=== PATIENT | male | born 1975 | race Caucasian/White ===

== ENCOUNTER → 2019-05-17 11:01 | Outpatient (CLI) | payer BC, SELFPAY ==
[2019-05-19 01:10] LABS: COVID19 Sendout Not Detected (Not Detected)
== END ==
PROVIDERS: Visit Provider Physician Assistant
DX: R06.02 Shortness of breath (principal)
CPT/HCPCS: 87635

== ENCOUNTER → 2019-09-28 06:50 | Outpatient (CLI) | payer BC, SELFPAY ==
[2019-09-28 08:39] LABS: Add Manual Diff / Slide Review NO; Basophils Absolute Auto 0 /uL (0-100); Basophils Percent Auto 0.8 % (0-2); Eosinophils Absolute Auto 200 /uL (0-450); Eosinophils Percent Auto 2.9 % (2-4); Hemoglobin 14.2 g/dL (13.5-17.5); Lymphocytes Absolute Auto 1600 /uL (1100-4500); Lymphocytes Percent Auto 27.3 % (25-40); Mean Corpuscular HGB Conc 33.7 % (30-36); Mean Corpuscular Hemoglobin 29.3 PG (26-34); Mean Corpuscular Volume 86.9 fL (80-100); Monocytes Absolute Auto 500 /uL (0-900); Neutrophils Absolute Auto 3600 /uL (1500-7000); Platelet Count 184 X10^3/uL (150-400); Red Blood Cell Count 4.83 X10^6/uL (4.5-5.9); Red Cell Distribution Width 13.7 % (11.6-14.8); White Blood Cell Count 5.9 X10^3/uL (4.5-11.0)
[2019-09-28 08:40] LABS: Alanine Aminotransferase 40 IU/L (<50); Albumin 4.2 g/dL (3.5-5.0); Albumin Globulin Ratio 1.3 (1.0-2.8); Alkaline Phosphatase 69 U/L (38-126); Aspartate Aminotransferase 38 IU/L (17-59); BUN Creatinine Ratio 15.5 (6-22); Bilirubin Total 0.7 mg/dL (0.2-1.3); Blood Urea Nitrogen 15 mg/dL (9-20); Calcium 9.1 mg/dL (8.4-10.2); Carbon Dioxide 28 mmol/L (22-32); Chloride 105 mmol/L (98-107); Estimated Glomerular Filt Rate > 60.0 mL/min (>60); Globulin 3.2 g/dL (1.7-4.1); Glucose 100 mg/dL (70-100); HEMOLYSIS < 15 (0-50); Potassium 4.4 mmol/L (3.4-5.1); Sodium 139 mmol/L (137-145); Total Protein 7.4 g/dL (6.3-8.2)
[2019-09-30 06:37] LABS: SARS CoV19 IgA Negative (Negative)
[2019-09-30 14:08] LABS: SARS-CoV19- IgM Negative (Negative)
== END ==
PROVIDERS: PCP Internal Medicine; Referring Provider Internal Medicine; Visit Provider Internal Medicine
DX: I83.813 Varicose veins of bilateral lower extremities with pain (principal); Z20.828 Contact with and (suspected) exposure to other viral communicable diseases; E66.9 Obesity, unspecified
CPT/HCPCS: 36415; 80053; 85025; 86769

== ENCOUNTER → 2020-01-30 08:08 | Outpatient (CLI) | payer BC, SELFPAY ==
[2020-01-30 09:45] LABS: Alanine Aminotransferase 39 IU/L (<50); Albumin 4.1 g/dL (3.5-5.0); Albumin Globulin Ratio 1.4 (1.0-2.8); Alkaline Phosphatase 72 U/L (38-126); Aspartate Aminotransferase 34 IU/L (17-59); Blood Urea Nitrogen 17 mg/dL (9-20); Calcium 9.2 mg/dL (8.4-10.2); Carbon Dioxide 28 mmol/L (22-32); Chloride 105 mmol/L (98-107); Cholesterol 119 mg/dL (140-199); Estimated Glomerular Filt Rate > 60.0 mL/min (>60); Glucose 101 mg/dL (70-100); HDL Cholesterol 45 mg/dL (40-60); HEMOLYSIS < 15 (0-50); LDL Cholesterol Calculated 60 mg/dL (<100); Potassium 4.5 mmol/L (3.4-5.1); Sodium 139 mmol/L (137-145); Total Protein 7.1 g/dL (6.3-8.2); Triglycerides 72 mg/dL (35-150)
== END ==
PROVIDERS: PCP Internal Medicine; Referring Provider Internal Medicine; Visit Provider Nurse Practitioner Adult Health
DX: Z00.00 Encounter for general adult medical examination without abnormal findings (principal)
CPT/HCPCS: 36415; 80053; 80061

== ENCOUNTER → 2020-05-10 16:50 | Outpatient (CLI) | payer BC, SELFPAY ==
[2020-05-10] MEDS: COVID-19 VACC #1, MRNA(MOD) 100 MCG/0.5 ML VIAL IM (17:07)
== END ==
PROVIDERS: PCP Internal Medicine; Visit Provider Internal Medicine
DX: Z23 Encounter for immunization (principal)
CPT/HCPCS: 0011A; 91301

== ENCOUNTER → 2020-06-07 14:48 | Outpatient (CLI) | payer BC, SELFPAY ==
[2020-06-07] MEDS: COVID-19 VACC #2, MRNA(MOD) 100 MCG/0.5 ML VIAL IM (14:55)
== END ==
PROVIDERS: PCP Internal Medicine; Visit Provider Internal Medicine
DX: Z23 Encounter for immunization (principal)
CPT/HCPCS: 0012A; 91301

== ENCOUNTER 2020-10-10 16:17 | Emergency (ER) | payer BC, SELFPAY ==
[2020-10-10] VITALS (11 sets, daily range): BP systolic 137–152; BP diastolic 69–98; PULSE 77–103; RESP 20; TEMP 37.1; O2SAT 97–99
--- NOTE | 2020-10-10 16:36 | DI.RAD.S_ITS ---
PROCEDURE: XR CHEST 2V INDICATIONS: cough/fever TECHNIQUE: 2 views of the chest were acquired. COMPARISON: None. FINDINGS: Surgical changes and devices: None. Lungs and pleura: Minimal patchy right basilar atelectasis versus consolidation. No pleural effusions or pneumothorax. Mediastinum: Mediastinal contours are normal. Heart size is normal. Bones and chest wall: No suspicious bony abnormalities. Soft tissues appear unremarkable. IMPRESSION: Minimal patchy right basilar atelectasis versus consolidation. Dictated by: Александр Fajardo M.D. on 10/10/2020 at 16:49 Approved by: Александр Fajardo M.D. on 10/10/2020 at 16:50
[2020-10-10 18:55] LABS: Adenovirus Not Detected (Not Detect); B. parapertussis Not Detected (Not Detecte); Bordetella pertussis Not Detected (Not Detecte); Chlamydophila pneumoniae Not Detected (Not Detect); Coronavirus 229E Not Detected (Not Detect); Coronavirus HKU1 Not Detected (Not Detect); Coronavirus NL 63 Not Detected (Not Detect); Coronavirus OC43 Not Detected (Not Detect); Human Metapneumovirus Not Detected (Not Detect); Human Rhinovirus/Enterovirus Not Detected (Not Detect); Influenza A Not Detected (Not Detect); Influenza B Not Detected (Not Detect); Mycoplasma pneumoniae Not Detected (Not Detect); Parainfluenza Virus 1 Not Detected (Not Detect); Parainfluenza Virus 2 Not Detected (Not Detect); Parainfluenza Virus 3 Not Detected (Not Detect); Parainfluenza Virus 4 Not Detected (Not Detect); Respiratory Syncytial Virus Not Detected (Not Detect); SARS- CoV-2 Not Detected (Not Detecte)
--- NOTE | 2020-10-10 19:52 | ED.URI ---
HPI - URI/Sore Throat General Chief Complaint: Upper Respiratory Symptoms Stated Complaint: possible flu/coughing up blood Time Seen by Provider: 10/10/20 16:28 Source: patient Mode of arrival: Ambulatory History of Present Illness HPI Narrative: 45-year-old male nonsmoker without chronic medical history presents with his significant other and a few days of increasing body aches, shortness of breath, cough and now some hemoptysis. He denies any runny nose or sore throat. He denies chest pain, nausea, vomiting or diarrhea. He denies any recent travel, history of blood clot or known cancers. He denies any lower extremity pain, swelling, redness. Related Data Home Medications Medication Instructions Recorded Confirmed bupropion HCl 300 mg 24 hr tablet, 300 mg PO QAM 05/17/19 05/17/19 extended release naltrexone 50 mg tablet 50 mg PO DAILY 05/17/19 05/17/19 Previous Rx's Medication Instructions Recorded apixaban 5 mg (74 tabs) tablets in See Rx Instructions .ROUTE 10/10/20 a dose pack (Club 42cm DVT-PE Treat .COMPLEX #74 ea 30D Start) Allergies Allergy/AdvReac Type Severity Reaction Status Date / Time No Known Drug Allergies Allergy Unverified 05/17/19 10:35 Review of Systems Review of Systems Narrative: GENERAL: Denies chills, fatigue, malaise, fever, sweats. HEENT: Denies sinus pain, ear pain, sore throat, difficulty swallowing, dizziness. RESPIRATORY: See HPI CARDIOVASCULAR: See HPI GASTROINTESTINAL: Denies nausea, vomiting, abdominal pain, diarrhea, constipation, melena. : Denies dysuria, frequency, incontinence, hematuria, urinary retention. MUSCULOSKELETAL: denies weakness, joint pain, or bony pain SKIN: Denies rash, skin lesions, or other NEUROLOGIC: Denies weakness, headache, numbness, change in speech, confusion, seizures, incoordination. PSYCHIATRIC: No concerning psychosocial issues. 12 point review of systems is negative except for those stated above Patient History Social History Smoking Status: Never smoker Smoking Status: Never smoker Exam Narrative Exam Narrative: GENERAL: [45] year old patient appears stated age. Well-developed patient, in mild distress. HEAD: Atraumatic. Normocephalic. EYES: Pupils equal round and reactive. Extraocular motions intact. No scleral icterus. No injection or drainage. ENT: Nose without bleeding, purulent drainage. Throat without erythema, tonsillar hypertrophy or exudate. Airway patent. NECK: Trachea midline. Non tender CARDIOVASCULAR: Regular rate and rhythm without murmurs, gallops, or rubs. RESPIRATORY: Faint crackles at right base. No increased work of breathing GASTROINTESTINAL: Abdomen soft, non-tender, nondistended. EXTREMITIES: No edema or joint tenderness. BACK: Nontender without deformity or crepitance. No flank tenderness. NEURO: AOx3. SKIN: No rash or erythema of visible areas Initial Vital Signs Initial Vital Signs: Vital Signs Temperature 98.8 F 10/10/20 16:23 Pulse Rate 87 10/10/20 16:23 Respiratory Rate 20 10/10/20 16:23 Blood Pressure 148/84 H 10/10/20 16:23 Pulse Oximetry 97 10/10/20 16:23 Course Orders Ordered: ED Orders 10/10/20 20:20 Complete Blood Count AUTO DIFF Stat Comprehensive Metabolic Panel Stat D Dimer Stat Lactate (Lactic Acid) Stat Magnesium Stat NT-proBNP (BNP-Adult 18+) Stat Procalcitonin Stat Troponin & CK Cardiac Panel Stat 10/10/20 20:40 EKG-12 Lead Stat 10/10/20 20:41 Blood Culture Stat 10/10/20 21:08 CT angio chest PE protocol Stat Discontinued Medications Apixaban (Apixaban 5 Mg Tablet) 10 mg PO NOW ONE Stop: 10/10/20 22:43 Last Admin: 10/10/20 22:59 Dose: 10 mg Documented by: ANN Sodium Chloride (Normal Saline 0.9%) 1,000 mls @ 150 mls/hr IV CONT MIGDALIA Last Infusion: 10/10/20 23:15 Dose: 0 mls/hr Documented by: Admin: 10/10/20 21:40 Dose: 150 mls/hr Documented by: PRIMITIVO Vital Signs Vital signs: Vital Signs - 8 hr 10/10/20 21:30 10/10/20 22:00 10/10/20 22:30 Pulse Rate 90 90 84 Blood Pressure 152/92 H 141/84 H 140/72 Pulse Oximetry 98 98 98 10/10/20 23:00 10/10/20 23:01 10/10/20 23:30 Pulse Rate 92 H 91 H 77 Blood Pressure 142/69 H 138/70 Pulse Oximetry 98 97 97 MDM - URI/Sore Throat Lab Data Result diagrams: 10/10/20 20:20 10/10/20 20:20 Labs: Lab Results 10/10/20 10/10/20 10/10/20 Range/Units 16:38 20:20 20:20 WBC 7.9 (4.5-11.0) X10^3/uL RBC 5.10 (4.5-5.9) X10^6/uL Hgb 14.9 (13.5-17.5) g/dL Hct 44.4 (41-53) % MCV 87.1 (80-100) fL MCH 29.1 (26-34) PG MCHC 33.5 (30-36) % RDW 13.7 (11.6-14.8) % Plt Count 189 (150-400) X10^3/uL Neut % (Auto) 65.8 (50-75) % Lymph % (Auto) 23.6 L (25-40) % [place] % (Auto) 8.1 (3-14) % Eos % (Auto) 1.8 L (2-4) % Baso % (Auto) 0.7 (0-2) % Neut # (Auto) 5200 (2884-8782) /uL Lymph # (Auto) 1900 (6246-2154) /uL [place] # (Auto) 600 (0-900) /uL Eos # (Auto) 100 (0-450) /uL Baso # (Auto) 100 (0-100) /uL D-Dimer 2244 H (<230) ng/mL Sodium (137-145) mmol/L Potassium (3.4-5.1) mmol/L Chloride (98-107) mmol/L Carbon Dioxide (22-32) mmol/L BUN (9-20) mg/dL Creatinine (0.66-1.25) mg/dL Estimated GFR (>60) mL/min BUN/Creatinine Ratio (6-22) Glucose (70-100) mg/dL Lactate (0.7-2.1) mmol/L Calcium (8.4-10.2) mg/dL Magnesium (1.6-2.3) mg/dL Total Bilirubin (0.2-1.3) mg/dL AST (17-59) IU/L ALT (<50) IU/L Alkaline Phosphatase (38-126) U/L Total Creatine Kinase (55-170) U/L CK-MB (CK-2) (<2.37) ng/mL CK-MB (CK-2) Rel Index (1.5-5.0) % Troponin I (0.01-0.034) ng/mL NT-Pro-B Natriuret Pep (<125) pg/mL Total Protein (6.3-8.2) g/dL Albumin (3.5-5.0) g/dL Globulin (1.7-4.1) g/dL Albumin/Globulin Ratio (1.0-2.8) Procalcitonin (<0.5) ng/mL Chlamy pneumoniae PCR Not detected (Not Detect) Adenovirus (PCR) Not detected (Not Detect) B. pertussis DNA (PCR) Not detected (Not Detecte) B.parapertussis DNA PCR Not detected (Not Detecte) Coronavirus OC43 (PCR) Not detected (Not Detect) Coronavirus HKU1 (PCR) Not detected (Not Detect) Coronavirus 229E (PCR) Not detected (Not Detect) SARS-CoV-2 (PCR) Not detected (Not Detecte) Coronavirus NL63 (PCR) Not detected (Not Detect) Human Metapneumovir PCR Not detected (Not Detect) Influenza Type A (PCR) Not detected (Not Detect) Influenza Type B (PCR) Not detected (Not Detect) M. pneumoniae (PCR) Not detected (Not Detect) Parainfluenza 1 (PCR) Not detected (Not Detect) Parainfluenza 2 (PCR) Not detected (Not Detect) Parainfluenza 3 (PCR) Not detected (Not Detect) Parainfluenza 4 (PCR) Not detected (Not Detect) RSV (PCR) Not detected (Not Detect) Entero/Rhino (PCR) Not detected (Not Detect) 10/10/20 10/10/20 10/10/20 Range/Units 20:20 20:20 20:20 WBC (4.5-11.0) X10^3/uL RBC (4.5-5.9) X10^6/uL Hgb (13.5-17.5) g/dL Hct (41-53) % MCV (80-100) fL MCH (26-34) PG MCHC (30-36) % RDW (11.6-14.8) % Plt Count (150-400) X10^3/uL Neut % (Auto) (50-75) % Lymph % (Auto) (25-40) % [place] % (Auto) (3-14) % Eos % (Auto) (2-4) % Baso % (Auto) (0-2) % Neut # (Auto) (3275-4548) /uL Lymph # (Auto) (3726-4755) /uL [place] # (Auto) (0-900) /uL Eos # (Auto) (0-450) /uL Baso # (Auto) (0-100) /uL D-Dimer (<230) ng/mL Sodium 139 (137-145) mmol/L Potassium 4.4 (3.4-5.1) mmol/L Chloride 105 (98-107) mmol/L Carbon Dioxide 28 (22-32) mmol/L BUN 14 (9-20) mg/dL Creatinine 0.83 (0.66-1.25) mg/dL Estimated GFR > 60.0 (>60) mL/min BUN/Creatinine Ratio 16.9 (6-22) Glucose 100 (70-100) mg/dL Lactate 1.0 (0.7-2.1) mmol/L Calcium 9.1 (8.4-10.2) mg/dL Magnesium 1.9 (1.6-2.3) mg/dL Total Bilirubin 0.6 (0.2-1.3) mg/dL AST 34 (17-59) IU/L ALT 32 (<50) IU/L Alkaline Phosphatase 65 (38-126) U/L Total Creatine Kinase 149 (55-170) U/L CK-MB (CK-2) 4.49 H (<2.37) ng/mL CK-MB (CK-2) Rel Index 3.0 (1.5-5.0) % Troponin I < 0.012 (0.01-0.034) ng/mL NT-Pro-B Natriuret Pep 413 H (<125) pg/mL Total Protein 7.5 (6.3-8.2) g/dL Albumin 4.2 (3.5-5.0) g/dL Globulin 3.3 (1.7-4.1) g/dL Albumin/Globulin Ratio 1.3 (1.0-2.8) Procalcitonin 0.07 (<0.5) ng/mL Chlamy pneumoniae PCR (Not Detect) Adenovirus (PCR) (Not Detect) B. pertussis DNA (PCR) (Not Detecte) B.parapertussis DNA PCR (Not Detecte) Coronavirus OC43 (PCR) (Not Detect) Coronavirus HKU1 (PCR) (Not Detect) Coronavirus 229E (PCR) (Not Detect) SARS-CoV-2 (PCR) (Not Detecte) Coronavirus NL63 (PCR) (Not Detect) Human Metapneumovir PCR (Not Detect) Influenza Type A (PCR) (Not Detect) Influenza Type B (PCR) (Not Detect) M. pneumoniae (PCR) (Not Detect) Parainfluenza 1 (PCR) (Not Detect) Parainfluenza 2 (PCR) (Not Detect) Parainfluenza 3 (PCR) (Not Detect) Parainfluenza 4 (PCR) (Not Detect) RSV (PCR) (Not Detect) Entero/Rhino (PCR) (Not Detect) Imaging Data CT scan - chest: Radiologist's Impression: [place] [address] CT Scan Report Signed Patient: Darnell Foster MR#: [id number] : 1975 Acct:[id number] Age/Sex: 45 / M Date of Service: 10/10/20 Loc: Accession Number: [id number] ?? Procedure: CT angio chest PE protocol Ordering Provider: Crow Campuzano D.O. PROCEDURE:? CT ANGIO CHEST PE PROTOCOL ? INDICATIONS:? Shortness of breath, hemoptysis, critical Dimer ? TECHNIQUE:? After the administration of intravenous contrast, 2 mm thick sections acquired from the pulmonary apices to the posterior costophrenic angles.? 3-dimensional maximum intensity projection (MIP) coronal and sagittal reformats were then acquired through the thorax.? For radiation dose reduction, the following was used:? automated exposure control, adjustment of mA and/or kV according to patient size.? ? COMPARISON:? None. ? FINDINGS:? Image quality:? Excellent.? ? Pulmonary arteries:? Distal left main pulmonary artery pulmonary embolus extending into the left upper lobe pulmonary artery, left lower lobe pulmonary artery, and multiple basilar segments.? No right-sided pulmonary emboli identified. ? Lungs and pleura:? Small right pleural effusion.? Patchy right basilar atelectasis.? No suspicious pulmonary nodules. ? Mediastinum:? Heart size is normal, without pericardial effusion.? Normal RV LV ratio.? No reflux of contrast into the inferior vena cava noted.? No mediastinal or hilar adenopathy.? Thoracic aorta is normal in caliber and enhancement.? Esophagus is normal in caliber, without hiatal hernia.? ? Bones and chest wall:? No suspicious bony lesions.? Ribs and thoracic spine appear intact throughout.? Question 2 cm left thyroid nodule..? No axillary or supraclavicular adenopathy.? ? Abdomen:? Visualized upper abdominal solid organs appear normal in the early arterial phase of enhancement.? Gastric band procedure noted. ? IMPRESSION:? ? 1. Relatively sizable distal left main pulmonary embolus extending into the upper lobe and lower lobe and multiple lower lobe basal segment pulmonary arteries. ? 2. No evidence of significant right heart strain by CT. ? 3. Small right pleural effusion and minimal right basilar atelectasis.? ? ? Dictated by: Александр Fajardo M.D. on 10/10/2020 at 22:10 ? ? [facility] Narrative Medical decision making narrative: Patient with some cough, low-grade fever and hemoptysis. He denies any significant respiratory distress and has very reassuring vital signs. At no point is he hypotensive, nor does he require supplemental oxygen. There is no evidence of heart strain on EKG, imaging or biochemically. Patient is stable with moderate size PE. Extensive return precautions given, questions answered to his apparent satisfaction. Discharge Plan Departure Patient Disposition: Home Clinical Impression: Pulmonary embolism Qualifiers: Pulmonary embolism type: unspecified Chronicity: acute Acute cor pulmonale presence: without acute cor pulmonale Qualified Code(s): I26.99 - Other pulmonary embolism without acute cor pulmonale Instructions: DI for Pulmonary Embolism Activity Restrictions/Additional Instructions: *You have been diagnosed with [acute pulmonary embolism] *What to do: *Please continue to take your regular medications as directed. [ ] New medication prescriptions sent to your pharmacy: [ ] [ x] New medication written as a paper prescription [ ] No new medications given *Please follow up with your primary care provider in 2-3 days, call for an appointment. Let them know you were seen in the Emergency Department and that we ask that you be seen in follow up. We will electronically transmit a record of today's note if your PCP is in our system *If you do not have a primary care provider please contact the [facility] Resource line at [phone]. They will ask some questions about your medical history and help get you set up with a doctor in the community. *Return to Emergency Department if you should have any new, worsening or concerning symptoms, such as [fever greater than 101 F, shaking chills, worsening pain, persistent vomiting or other bothersome symptoms] Prescriptions: New Eliquis DVT-PE Treat 30D Start 5 mg (74 tabs) tablets,dose pack See Rx Instructions .ROUTE .COMPLEX Qty: 74 RF: 0 No Action naltrexone 50 mg tablet 50 mg PO DAILY RF: 0 bupropion HCl 300 mg tablet extended release 24 hr 300 mg PO QAM RF: 0 Referrals: Fernando Molina MD [Primary Care Provider] -
[2020-10-10 20:31] LABS: Add Manual Diff / Slide Review NO; Basophils Absolute Auto 100 /uL (0-100); Basophils Percent Auto 0.7 % (0-2); Eosinophils Absolute Auto 100 /uL (0-450); Eosinophils Percent Auto 1.8 % (2-4); Hematocrit 44.4 % (41-53); Hemoglobin 14.9 g/dL (13.5-17.5); Lymphocytes Absolute Auto 1900 /uL (1100-4500); Lymphocytes Percent Auto 23.6 % (25-40); Mean Corpuscular HGB Conc 33.5 % (30-36); Mean Corpuscular Hemoglobin 29.1 PG (26-34); Mean Corpuscular Volume 87.1 fL (80-100); Monocytes Absolute Auto 600 /uL (0-900); Monocytes Percent Auto 8.1 % (3-14); Neutrophils Absolute Auto 5200 /uL (1500-7000); Neutrophils Percent Auto 65.8 % (50-75); Platelet Count 189 X10^3/uL (150-400); Red Cell Distribution Width 13.7 % (11.6-14.8); White Blood Cell Count 7.9 X10^3/uL (4.5-11.0)
[2020-10-10 20:46] LABS: Creatine Kinase 149 U/L (55-170); Magnesium 1.9 mg/dL (1.6-2.3)
[2020-10-10 20:47] LABS: Alanine Aminotransferase 32 IU/L (<50); Albumin 4.2 g/dL (3.5-5.0); Albumin Globulin Ratio 1.3 (1.0-2.8); Alkaline Phosphatase 65 U/L (38-126); Aspartate Aminotransferase 34 IU/L (17-59); BUN Creatinine Ratio 16.9 (6-22); Bilirubin Total 0.6 mg/dL (0.2-1.3); Blood Urea Nitrogen 14 mg/dL (9-20); Calcium 9.1 mg/dL (8.4-10.2); Carbon Dioxide 28 mmol/L (22-32); Chloride 105 mmol/L (98-107); Estimated Glomerular Filt Rate > 60.0 mL/min (>60); Globulin 3.3 g/dL (1.7-4.1); Glucose 100 mg/dL (70-100); HEMOLYSIS < 15 (0-50); Potassium 4.4 mmol/L (3.4-5.1); Sodium 139 mmol/L (137-145); Total Protein 7.5 g/dL (6.3-8.2)
[2020-10-10 20:52] LABS: D Dimer 2244 ng/mL (<230)
[2020-10-10 20:59] LABS: NT-proBNP (BNP-Adult 18+) 413 pg/mL (<125); Troponin I < 0.012 ng/mL (0.01-0.034)
[2020-10-10 21:01] LABS: Creatine Kinase MB 4.49 ng/mL (<2.37)
[2020-10-10 21:04] LABS: Procalcitonin 0.07 ng/mL (<0.5)
--- NOTE | 2020-10-10 21:08 | DI.CT.S_ITS ---
PROCEDURE: CT ANGIO CHEST PE PROTOCOL INDICATIONS: Shortness of breath, hemoptysis, critical Dimer TECHNIQUE: After the administration of intravenous contrast, 2 mm thick sections acquired from the pulmonary apices to the posterior costophrenic angles. 3-dimensional maximum intensity projection (MIP) coronal and sagittal reformats were then acquired through the thorax. For radiation dose reduction, the following was used: automated exposure control, adjustment of mA and/or kV according to patient size. COMPARISON: None. FINDINGS: Image quality: Excellent. Pulmonary arteries: Distal left main pulmonary artery pulmonary embolus extending into the left upper lobe pulmonary artery, left lower lobe pulmonary artery, and multiple basilar segments. No right-sided pulmonary emboli identified. Lungs and pleura: Small right pleural effusion. Patchy right basilar atelectasis. No suspicious pulmonary nodules. Mediastinum: Heart size is normal, without pericardial effusion. Normal RV LV ratio. No reflux of contrast into the inferior vena cava noted. No mediastinal or hilar adenopathy. Thoracic aorta is normal in caliber and enhancement. Esophagus is normal in caliber, without hiatal hernia. Bones and chest wall: No suspicious bony lesions. Ribs and thoracic spine appear intact throughout. Question 2 cm left thyroid nodule.. No axillary or supraclavicular adenopathy. Abdomen: Visualized upper abdominal solid organs appear normal in the early arterial phase of enhancement. Gastric band procedure noted. IMPRESSION: 1. Relatively sizable distal left main pulmonary embolus extending into the upper lobe and lower lobe and multiple lower lobe basal segment pulmonary arteries. 2. No evidence of significant right heart strain by CT. 3. Small right pleural effusion and minimal right basilar atelectasis. Dictated by: Александр Fajardo M.D. on 10/10/2020 at 22:10 Approved by: Александр Fajardo M.D. on 10/10/2020 at 22:13
[2020-10-10] MEDS: SODIUM CHLORIDE 0.9% 1,000 ML 150 ML IV (21:40)
[2020-10-10] MEDS: APIXABAN 5 MG TABLET 10 MG PO (22:59)
== END 2020-10-10 23:44 | disposition home or self-care (01) ==
PROVIDERS: Emergency Medicine; Emergency Provider Emergency Medicine; PCP Internal Medicine
DX: I26.99 Other pulmonary embolism without acute cor pulmonale (principal); R50.9 Fever, unspecified; R04.2 Hemoptysis; Z20.822 Contact with and (suspected) exposure to COVID-19
CPT/HCPCS: 36415; 71046; 71275; 80053; 82550; 82553; 83605; 83735; 83880; 84145; 84484; 85025; 85379; 87040; 87633; 93005; 96360; 96361; 99284; Q9967

== ENCOUNTER → 2020-12-21 15:33 | Outpatient (CLI) | payer BC, SELFPAY ==
[2020-12-21] MEDS: COVID-19 VACC #3, MRNA(MOD) 50 MCG/0.25 ML VIAL IM (15:45)
== END ==
PROVIDERS: PCP Internal Medicine; Visit Provider Internal Medicine
DX: Z23 Encounter for immunization (principal)
CPT/HCPCS: 0013A; 91301

== ENCOUNTER 2021-01-25 16:29 | Emergency (ER) | payer BC, SELFPAY ==
[2021-01-25] VITALS (9 sets, daily range): BP systolic 124–164; BP diastolic 71–95; PULSE 59–76; RESP 18–23; TEMP 36.9; O2SAT 96–98; BMI 47.3
--- NOTE | 2021-01-25 16:44 | ED.GENADULT ---
HPI - General Adult General Chief complaint: Hypertension Stated complaint: BLOOD PRESSURE IS SPIKING Time Seen by Provider: 01/25/21 16:44 Source: patient Mode of arrival: Ambulatory History of Present Illness HPI narrative: 45-year-old male nonsmoker with history of pulmonary embolism on Eliquis presents with his significant other and a chief complaint of fluctuating blood pressure over the course of the week, sometimes getting as high as the 160s. He associates various symptoms with elevated blood pressure including a splitting headache yesterday and some chest pressure earlier today. He does not take blood pressure medications, is not prescribed blood pressure medications. He denies any alteration in his routine medications, but admits he has been under stress due to work at home. On arrival his blood pressure is in the 160s any has some slight chest heaviness. This chest heaviness does not seem to worsen with exertion and is not associated with shortness of breath, nausea, vomiting or diaphoresis. It does not radiate and is centrally located. It resolves when his blood pressure drops into the 130s. Related Data Home Medications Medication Instructions Recorded Confirmed bupropion HCl 300 mg 24 hr tablet, 300 mg PO QAM 05/17/19 01/08/21 extended release naltrexone 50 mg tablet 50 mg PO DAILY 05/17/19 01/08/21 Previous Rx's Medication Instructions Recorded apixaban 5 mg (74 tabs) tablets in See Rx Instructions .ROUTE 10/10/20 a dose pack (Eliquis DVT-PE Treat .COMPLEX #74 ea 30D Start) Allergies Allergy/AdvReac Type Severity Reaction Status Date / Time No Known Drug Allergies Allergy Verified 01/25/21 16:34 Review of Systems Review of Systems Narrative: GENERAL: See HPI HEENT: Denies sinus pain, ear pain, sore throat, difficulty swallowing, dizziness. RESPIRATORY: Denies dyspnea, cough, wheezing, hemoptysis, sputum. CARDIOVASCULAR: See HPI GASTROINTESTINAL: Denies nausea, vomiting, abdominal pain, diarrhea, constipation, melena. : Denies dysuria, frequency, incontinence, hematuria, urinary retention. MUSCULOSKELETAL: denies weakness, joint pain, or bony pain SKIN: Denies rash, skin lesions, or other NEUROLOGIC: See HPI PSYCHIATRIC: No concerning psychosocial issues. 12 point review of systems is negative except for those stated above Patient History Social History Smoking Status: Never smoker Smoking Status: Never smoker alcohol intake frequency: holidays/special occasions only Substance Use Type: does not use Exam Narrative Exam Narrative: GENERAL: [45 year old patient appears stated age. Well-developed patient, in mild distress. HEAD: Atraumatic. Normocephalic. EYES: Pupils equal round and reactive. Extraocular motions intact. No scleral icterus. No injection or drainage. ENT: Nose without bleeding, purulent drainage. Throat without erythema, tonsillar hypertrophy or exudate. Airway patent. NECK: Trachea midline. Non tender CARDIOVASCULAR: Regular rate and rhythm without murmurs, gallops, or rubs. RESPIRATORY: Clear to auscultation. Breath sounds equal bilaterally. No wheezes, rales, or rhonchi. GASTROINTESTINAL: Abdomen soft, non-tender, nondistended. EXTREMITIES: No edema or joint tenderness. BACK: Nontender without deformity or crepitance. No flank tenderness. NEURO: AOx3. SKIN: No rash or erythema of visible areas NIH Stroke Scale 1a. LOC: Patient is alert and keenly responsive (0) 1b. LOC Questions: Patient answers both LOC questions accurately (0) 1c. LOC Commands: Patient performs both tasks correctly (0) 2. Best Gaze: Normal (0) 3. Visual: No visual loss (0) 4. Facial palsy: Normal symmetrical movements (0) 5. Motor arm: No drift (0) 6. Motor leg: No drift (0) 7. Limb ataxia: Absent (0) 8. Sensory: Normal (0) 9. Best language: No aphasia; normal (0) 10. Dysarthria: Normal (0) 11. Extinction and inattention: No abnormality (0) NIHSS: 0 Initial Vital Signs Initial Vital Signs: Vital Signs Temperature 98.5 F 01/25/21 16:35 Pulse Rate 76 01/25/21 16:35 Respiratory Rate 18 01/25/21 16:35 Blood Pressure 164/95 H 01/25/21 16:35 Pulse Oximetry 98 01/25/21 16:35 Course Orders Ordered: Discontinued Medications Aspirin (Aspirin 81 Mg Chew Tab) 324 mg PO NOW ONE Stop: 01/25/21 16:47 Last Admin: 01/25/21 17:14 Dose: 324 mg Documented by: ATAYLOR Sodium Chloride (Normal Saline 0.9%) 1,000 mls @ 150 mls/hr IV CONT MIGDALIA Last Admin: 01/25/21 18:28 Dose: Not Given Documented by: ATAYLOR Vital Signs Vital signs: Vital Signs - 8 hr 01/25/21 16:35 01/25/21 16:48 01/25/21 16:49 Temperature 98.5 F Pulse Rate 76 68 70 Respiratory Rate 18 Blood Pressure 164/95 H 136/79 Pulse Oximetry 98 97 97 01/25/21 17:00 01/25/21 17:15 Temperature Pulse Rate 72 64 Respiratory Rate 22 22 Blood Pressure 136/82 Pulse Oximetry 96 96 Medical Decision Making Lab Data Result diagrams: 01/25/21 17:15 01/25/21 17:15 Labs: Lab Results 01/25/21 01/25/21 Range/Units 17:15 17:15 WBC 5.2 (4.5-11.0) X10^3/uL RBC 5.10 (4.5-5.9) X10^6/uL Hgb 14.7 (13.5-17.5) g/dL Hct 43.2 (41-53) % MCV 84.6 (80-100) fL MCH 28.8 (26-34) PG MCHC 34.0 (30-36) % RDW 14.8 (11.6-14.8) % Plt Count 179 (150-400) X10^3/uL Neut % (Auto) 49.1 L (50-75) % Lymph % (Auto) 35.1 (25-40) % Lyon % (Auto) 12.3 (3-14) % Eos % (Auto) 2.7 (2-4) % Baso % (Auto) 0.8 (0-2) % Neut # (Auto) 2600 (6053-0743) /uL Lymph # (Auto) 1800 (1463-2476) /uL Lyon # (Auto) 600 (0-900) /uL Eos # (Auto) 100 (0-450) /uL Baso # (Auto) 0 (0-100) /uL Sodium 139 (137-145) mmol/L Potassium 4.0 (3.4-5.1) mmol/L Chloride 107 (98-107) mmol/L Carbon Dioxide 26 (22-32) mmol/L BUN 14 (9-20) mg/dL Creatinine 0.85 (0.66-1.25) mg/dL Estimated GFR > 60.0 (>60) mL/min BUN/Creatinine Ratio 16.5 (6-22) Glucose 122 H (70-100) mg/dL Calcium 9.3 (8.4-10.2) mg/dL Total Bilirubin 0.4 (0.2-1.3) mg/dL AST 37 (17-59) IU/L ALT 44 (<50) IU/L Alkaline Phosphatase 65 (38-126) U/L Total Creatine Kinase 262 H (55-170) U/L CK-MB (CK-2) 4.67 H (<2.37) ng/mL CK-MB (CK-2) Rel Index 1.8 (1.5-5.0) % Troponin I < 0.012 (0.01-0.034) ng/mL Total Protein 7.5 (6.3-8.2) g/dL Albumin 4.3 (3.5-5.0) g/dL Globulin 3.2 (1.7-4.1) g/dL Albumin/Globulin Ratio 1.3 (1.0-2.8) Lipase 76 (23-300) U/L Imaging Data Chest x-ray: Radiologist's Impression: Darnell Foster??45??M??1975 ? Allergy/Adv: No Known Drug Allergies Close Chest X-Ray (Signed) Ismael Zhao - 01/25/21 Chest CTA (Signed) Александр Fajadro - 10/10/20 Chest X-Ray (Signed) Александр Fajardo - 10/10/20 [address] [address] XRay Report Signed Patient: Darnell Foster MR#: [id number] : 1975 Acct:[id number] Age/Sex: 45 / M Date of Service: 01/25/21 Loc: Accession Number: [id number] ?? Procedure: XR chest 1V Ordering Provider: Crow Campuzano D.O. PROCEDURE:? XR CHEST 1V ? INDICATIONS:? HTN, chest pain ? TECHNIQUE:? One view of the chest was acquired.? ? COMPARISON:? None. ? FINDINGS:? ? Surgical changes and devices:? None.? ? Lungs and pleura:? Lungs are clear.? No pleural effusions or pneumothorax.? ? Mediastinum:? Mediastinal contours appear normal.? Heart size is normal.? ? Bones and chest wall:? No suspicious bony lesions.? Overlying soft tissues appear unremarkable.? ? IMPRESSION:? No acute cardiopulmonary process demonstrated radiographically. ? ? Dictated by: Ismael Zhao M.D. on 01/25/2021 at 17:12 ? ? Approved by: Ismael Zhao M.D. on 01/25/2021 at 17:13? MDM Narrative Medical decision making narrative: Patient has a very reassuring history and physical exam. Vitals have been stable and very reassuring. Patient asymptomatic for the duration of his visit. EKG nonischemic, no evidence of myocardial infarction on labs. It seems likely that patient's symptoms had been related to an elevated blood pressure, given the fact that he is stable here without symptoms with a systolic in the 130s there is no indication to initiate antihypertensives today. He will discuss the potential need with his primary care provider and/or court clerk. Return precautions discussed and questions answered to his apparent satisfaction Discharge Plan Departure Patient Disposition: Home Clinical Impression: Hypertension Instructions: DI for High Blood Pressure Activity Restrictions/Additional Instructions: *You have been diagnosed with [hypertension, though not sufficiently elevated to warrant initiation of new medications. *What to do: *Please continue to take your regular medications as directed. [ ] New medication prescriptions sent to your pharmacy: [ ] [ ] New medication written as a paper prescription [x ] No new medications given *Please follow up with your primary care provider in 2-3 days, call for an appointment. Let them know you were seen in the Emergency Department and that we ask that you be seen in follow up. We will electronically transmit a record of today's note if your PCP is in our system *If you do not have a primary care provider please contact the [facility] Resource line at [phone]. They will ask some questions about your medical history and help get you set up with a doctor in the community. *Return to Emergency Department if you should have any new, worsening or concerning symptoms, such as [fever greater than 101 F, shaking chills, worsening pain, persistent vomiting or other bothersome symptoms] Prescriptions: No Action naltrexone 50 mg tablet 50 mg PO DAILY 0RF bupropion HCl 300 mg tablet extended release 24 hr 300 mg PO QAM 0RF Eliquis DVT-PE Treat 30D Start 5 mg (74 tabs) tablets,dose pack See Rx Instructions .ROUTE .COMPLEX Qty: 74 0RF Rx Instructions: orally per package directions Referrals: Fernando Molina MD [Primary Care Provider] -
--- NOTE | 2021-01-25 16:46 | DI.RAD.S_ITS ---
PROCEDURE: XR CHEST 1V INDICATIONS: HTN, chest pain TECHNIQUE: One view of the chest was acquired. COMPARISON: None. FINDINGS: Surgical changes and devices: None. Lungs and pleura: Lungs are clear. No pleural effusions or pneumothorax. Mediastinum: Mediastinal contours appear normal. Heart size is normal. Bones and chest wall: No suspicious bony lesions. Overlying soft tissues appear unremarkable. IMPRESSION: No acute cardiopulmonary process demonstrated radiographically. Dictated by: Ismael Zhao M.D. on 01/25/2021 at 17:12 Approved by: Ismael Zhao M.D. on 01/25/2021 at 17:13
[2021-01-25] MEDS: ASPIRIN 81 MG CHEW TAB 324 MG PO (17:14)
[2021-01-25 17:40] LABS: Add Manual Diff / Slide Review NO; Basophils Absolute Auto 0 /uL (0-100); Basophils Percent Auto 0.8 % (0-2); Eosinophils Absolute Auto 100 /uL (0-450); Eosinophils Percent Auto 2.7 % (2-4); Hematocrit 43.2 % (41-53); Hemoglobin 14.7 g/dL (13.5-17.5); Lymphocytes Absolute Auto 1800 /uL (1100-4500); Lymphocytes Percent Auto 35.1 % (25-40); Mean Corpuscular Hemoglobin 28.8 PG (26-34); Mean Corpuscular Volume 84.6 fL (80-100); Monocytes Absolute Auto 600 /uL (0-900); Monocytes Percent Auto 12.3 % (3-14); Neutrophils Absolute Auto 2600 /uL (1500-7000); Neutrophils Percent Auto 49.1 % (50-75); Platelet Count 179 X10^3/uL (150-400); Red Cell Distribution Width 14.8 % (11.6-14.8); White Blood Cell Count 5.2 X10^3/uL (4.5-11.0)
[2021-01-25 17:47] LABS: Alanine Aminotransferase 44 IU/L (<50); Albumin 4.3 g/dL (3.5-5.0); Albumin Globulin Ratio 1.3 (1.0-2.8); Alkaline Phosphatase 65 U/L (38-126); Aspartate Aminotransferase 37 IU/L (17-59); BUN Creatinine Ratio 16.5 (6-22); Bilirubin Total 0.4 mg/dL (0.2-1.3); Blood Urea Nitrogen 14 mg/dL (9-20); Calcium 9.3 mg/dL (8.4-10.2); Carbon Dioxide 26 mmol/L (22-32); Chloride 107 mmol/L (98-107); Creatine Kinase 262 U/L (55-170); Estimated Glomerular Filt Rate > 60.0 mL/min (>60); Globulin 3.2 g/dL (1.7-4.1); Glucose 122 mg/dL (70-100); HEMOLYSIS 28 (0-50); Lipase 76 U/L (23-300); Sodium 139 mmol/L (137-145); Total Protein 7.5 g/dL (6.3-8.2)
[2021-01-25 17:58] LABS: Troponin I < 0.012 ng/mL (0.01-0.034)
[2021-01-25 18:02] LABS: CKMB % Relative Index 1.8 % (1.5-5.0); Creatine Kinase MB 4.67 ng/mL (<2.37)
== END 2021-01-25 18:28 | disposition home or self-care (01) ==
PROVIDERS: Emergency Provider Emergency Medicine; PCP Internal Medicine
DX: I10 Essential (primary) hypertension (principal); Z79.01 Long term (current) use of anticoagulants; Z86.711 Personal history of pulmonary embolism
CPT/HCPCS: 36415; 71045; 80053; 82550; 82553; 83690; 84484; 85025; 93005; 93010; 99284

== ENCOUNTER → 2021-01-28 09:22 | Outpatient (CLI) | payer BC, SELFPAY ==
[2021-01-28 13:40] LABS: Cholesterol 175 mg/dL (140-199); Glucose 107 mg/dL (70-100); HDL Cholesterol 46 mg/dL (40-60); LDL Cholesterol Calculated 110 mg/dL (<100); Triglycerides 95 mg/dL (35-150)
[2021-01-28 13:51] LABS: LDL Cholesterol Direct 92 mg/dL (<100)
[2021-01-28 14:14] LABS: TSH w/ Reflex to FT4 2.92 uIU/mL (0.47-4.68)
== END ==
PROVIDERS: PCP Family Medicine; Referring Provider Family Medicine; Visit Provider Family Medicine
DX: Z13.1 Encounter for screening for diabetes mellitus (principal); E66.9 Obesity, unspecified; Z13.29 Encounter for screening for other suspected endocrine disorder
CPT/HCPCS: 36415; 80061; 82947; 83721; 84443

== ENCOUNTER → 2021-02-08 10:49 | Outpatient (CLI) | payer BC, SELFPAY ==
[2021-02-08 11:36] LABS: Sperm Motility 0% % Motile
[2021-02-08 11:37] LABS: Liquefaction Semen YES (YES)
[2021-02-08 11:39] LABS: PH Semen 8 (7-8); Sperm Count < 1 x10^6/mL (20-150)
== END ==
PROVIDERS: PCP Family Medicine; Referring Provider Family Medicine; Visit Provider Family Medicine
DX: N46.9 Male infertility, unspecified (principal)
CPT/HCPCS: 89320

== ENCOUNTER → 2021-02-15 14:35 | Outpatient (CLI) | payer BC, SELFPAY ==
--- NOTE | 2021-02-15 | DI.ECHO.S_ITS ---
[facility] +---------+ : : [address] : : : : [id number] : : : : Phone: [phone]+ Echocardiogram Report + + :Name: BEBETO SHERMAN Study Date: 02/15/2021 Height: 74 in : :[facility] ReadingLocation: : : Gender: Male : :: 1975 Age: 45 yrs BP: 160/100 mmHg: :Reason For Study: Pulmonary- Embolism : :Ordering Physician: Jamilah : :Tabatha Performed By: Sarabjit Harrison : :Referring: JAMILAH BOWMAN E : + + Interpretation Summary The ejection fraction is estimated to be 55-60%. Diastolic parameters suggest probable normal left ventricular diastolic function and normal filling pressures. The right ventricle is normal in size and function. No significant valvular abnormalities. Unable to estimate PASP. Procedure: A two-dimensional transthoracic echocardiogram with color flow and Doppler was performed. There is no prior echocardiogram noted for this patient. A contrast injection of Definity was performed to improve assessment of LV function. Overall fair image quality. The patient was in normal sinus rhythm during the exam. Left Ventricle: The left ventricle is normal in size and wall thickness. The ejection fraction is estimated to be 55-60%. Diastolic parameters suggest probable normal left ventricular diastolic function and normal filling pressures. Right Ventricle: The right ventricle is normal in size and function. Atria: Both atria are normal in size. There is no Doppler evidence for an interatrial shunt. The atrial septum is aneurysmal. Mitral Valve: The mitral valve is normal in structure and function. Aortic Valve: The aortic valve is trileaflet. The aortic valve opens well. There is no aortic valve stenosis. There is trace aortic regurgitation. Tricuspid Valve: The tricuspid valve is normal. There is trace tricuspid regurgitation. Pulmonary artery pressures cannot be estimated because of the lack of a measurable TR jet velocity but the IVC suggests a CVP of around 3 mmHg. Pulmonic Valve: The pulmonic valve is normal in structure and function. Great Vessels: The aortic root is normal size. The ascending aorta is normal in size. The aortic arch is normal in size. The IVC is of normal diameter and collapses greater than 50% with a sniff. This suggests a low right atrial pressure of 3 mm Hg. Pericardium/ Pleura There is no pericardial effusion. There is an anterior echo-free space consistent with a fat pad. There is no pleural effusion. MMode/2D Measurements & Calculations LVIDd: 4.8 cm LVOT diam: 2.5 cm LVIDs: 3.1 cm Ao root diam: 3.6 cm FS: 35.5 % asc Aorta Diam: 3.5 cm IVSd: 1.0 cm Ao Arch Diam (Prox Trans): 2.2 cm LVPWd: 0.91 cm LA A2 area: 19.7 cm2 RA long axis: 6.4 cm LA A4 area: 20.7 cm2 RA area: 16.9 cm2 LA length (vol): 6.4 cm RA vol: 37.9 ml LA vol: 53.9 ml TAPSE: 2.3 cm Doppler Measurements & Calculations Ao V2 max: 138.8 cm/sec LVOT Max Juan Carlos: 126.7 cm/sec Ao V2 mean: 99.3 cm/sec LV V1 max P.4 mmHg Ao max P.7 mmHg LV V1 VTI: 26.3 cm Ao mean P.3 mmHg ADRIANNE(I,D): 4.7 cm2 Ao V2 VTI: 26.9 cm ADRIANNE(V,D): 4.4 cm2 sev ratio: 0.97 MV E max juan carlos: 50.2 cm/sec PA V2 max: 123.1 cm/sec MV A max juan carlos: 55.8 cm/sec PA V2 mean: 95.2 cm/sec MV E/A: 0.90 PA mean P.8 mmHg Med Peak E' Juan Carlos: 9.8 cm/sec PA pr(Accel): 43.0 mmHg E/E' med: 5.1 Lat Peak E' Juan Carlos: 15.3 cm/sec E/E' lat: 3.3 E/e' average: 4.2 MV dec time: 0.28 sec SV(LVOT): 127.4 ml Reading Physician:03:49 PM
== END ==
PROVIDERS: PCP Family Medicine; Referring Provider Internal Medicine Cardiovascular Disease; Visit Provider Internal Medicine Cardiovascular Disease
DX: I26.99 Other pulmonary embolism without acute cor pulmonale (principal)
CPT/HCPCS: 93306; Q9957

== ENCOUNTER → 2021-03-05 11:09 | Outpatient (CLI) | payer BC, SELFPAY ==
--- NOTE | 2021-03-05 | DI.US.S_ITS ---
PROCEDURE: US PERIPH VENOUS LOW EXTREM BI INDICATIONS: HISTORY OF PULMONARY EMBOLISM TECHNIQUE: Real-time imaging, as well as color and pulse Doppler interrogation, were performed of the deep veins of both legs from the inguinal ligament to the popliteal fossa. COMPARISON: [facility], CT, CT ANGIO CHEST PE PROTOCOL, 10/10/2020, 21:33. FINDINGS: Right: The common femoral, femoral and popliteal veins are normally compressible, and free of intraluminal thrombus. Color and pulse Doppler demonstrate normal phasic intravascular flow. There is normal augmentation response to distal compression maneuver. Left: The common femoral, femoral and popliteal veins are normally compressible, and free of intraluminal thrombus. Color and pulse Doppler demonstrate normal phasic intravascular flow. There is normal augmentation response to distal compression maneuver. IMPRESSION: Negative for deep venous thrombosis. Dictated by: Tommie Head M.D. on 03/05/2021 at 10:59 Approved by: Tommie Head M.D. on 03/05/2021 at 11:00
== END ==
PROVIDERS: PCP Family Medicine; Referring Provider Internal Medicine Hematology & Oncology; Visit Provider Internal Medicine Hematology & Oncology
DX: Z86.711 Personal history of pulmonary embolism (principal); Z09 Encounter for follow-up examination after completed treatment for conditions other than malignant neoplasm
CPT/HCPCS: 93970

== ENCOUNTER → 2023-07-30 08:31 | Outpatient (ROUT) | payer BC, SELFPAY ==
[2023-07-30 08:49] LABS: D Dimer < 215 ng/ml (<500)
== END ==
PROVIDERS: PCP Family Medicine; Visit Provider Student in an Organized Health Care Education/Training Program
DX: R07.89 Other chest pain (principal)
CPT/HCPCS: 85379

== ENCOUNTER 2024-03-22 08:15 | Day surgery (SDC) | payer BC, SELFPAY ==
--- NOTE | 2024-03-22 | PATH_ITS ---
[facility] Accession Number: [id number] No. of containers..01 Tissue . 01 Material submitted: . colon - ASCENDING COLON POLYP X3 . 01 Diagnosis: ASCENDING COLON POLYPS: Tubular adenomas (three polyps removed). MRV 03/24/2024 1309 Local . 01 Electronically signed: . Jovany Mortensen MD, PhD, Pathologist NPI- [id number] . 01 Gross description: . Received in formalin with two patient identifiers and ascending colon polyp x3, are multiple heredia and brown soft tissue fragments mixed with other biological material. The largest fragment measures 1.2 x 0.7 x 0.5 cm. The largest fragment is inked blue, sectioned, and submitted in A1. The remaining fragments were filtered and submitted in A2. ([id number]) /MRV 03/23/2024 1804 Local . 01 Pathologist provided ICD-10: D12.2 . 01 CPT . 329859 Specimen Comment: A courtesy copy of this report has been sent to [facility] Pathology Performed at: [address] [id number] MD Jose Causey MD Phone: [phone]
[2024-03-22 08:47] VITALS: BP 138/83; PULSE 79; RESP 16; TEMP 35.9; O2SAT 97
[2024-03-22] MEDS: LACTATED RINGERS 1,000 ML 42 ML IV (08:51)
--- NOTE | 2024-03-22 09:34 | PM.HP.IH.1 ---
History of Present Illness History of Present Illness Date Patient Seen: 03/22/24 Time Patient Seen: 09:34 Chief complaint: Screening Colonoscopy Narrative: 48-year-old white male, BMI 50, presents for initial screening colonoscopy. No family history of colon cancer, Crohn's disease or ulcerative colitis. No blood in stool. [facility] Medical History (Updated 03/22/24 @ 09:35 by Everett Monterroso MD) Colon cancer screening (03/22/24) Social History Smoking Status: Never smoker alcohol intake: current Meds Home Medications and Allergies Home Medications Medication Instructions Recorded Confirmed Type ResMed AirCurve 10 VAuto 04/02/21 06/13/23 History ipratropium bromide 42 mcg (0.06 2 spray intranasal TID #15 mL 11/20/21 06/13/23 Rx %) nasal spray apixaban 5 mg tablet (Eliquis) 5 mg PO BID 06/13/23 06/13/23 History Allergies Allergy/AdvReac Type Severity Reaction Status Date / Time No Known Drug Allergies Allergy Verified 03/22/24 08:39 Review of Systems Review of Systems ROS: Yes All systems reviewed with the patient and are negative except as otherwise documented Exam Vital Signs (past 8 hours): - 03/22/24 08:47 Temperature 96.6 F L Pulse Rate 79 Respiratory Rate 16 Blood Pressure 138/83 Pulse Oximetry 97 Oxygen Delivery Method Room Air Oxygen Delivery Method Room Air Narrative Exam Narrative: Gen: NAD, sitting comfortably in bed, appears well HEENT: Sclera are anicteric, head is normocephalic and atraumatic, trachea is midline. CV: RRR, no JVD Resp: clear to auscultation bilaterally, equal chest wall movement bilaterally Abd: soft, nontender, normoactive bowel sounds Ext: no edema, full range of motion Neuro: Cranial nerves II-XII grossly intact, no focal deficits Skin: No erythema or ecchymosis Assessment & Plan Assessment and plan (1) Colon cancer screening: Status: Acute Assessment & Plan narrative: Patient presents for colonoscopy Risks, benefits, alternatives to colonoscopy explained, including but not limited to bowel perforation or other serious complication requiring surgery at less than 1 in 5000 colonoscopies, abdominal pain, cramping or bleeding and less than 1% of colonoscopies, and the chances that we find a diagnosis that would require further intervention of about 2%. Patient agrees to proceed. Time-Based Coding :: [TOTAL MINUTES] spent with patient and on the chart (including review of chart, obtaining history, exam, reviewing outside data, placing orders, documenting exam and treatment plan, and counseling patient) on [DATE]. 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
--- NOTE | 2024-03-22 09:55 | PM.OP.COLON ---
Operative Date/Time/Diagnoses Date of procedure: 03/22/24 Time of procedure: 09:55 Pre-op diagnosis: Colon screening Post-op diagnosis: same (Ascending colon polyps x3) Procedure & Clinicians Study performed: Colonoscopy with cold snare polypectomy x3 Same procedure as scheduled: Yes Indications: Colon screening Surgeon: Everett Monterroso Procedure Notes SCOAP/Timeout: Performed Procedure in detail: Time-out was performed. Mac was induced. Patient was placed in left lateral decubitus position. The perineum was inspected without any gross abnormality. Lubricated pediatric colonoscope was inserted and advanced to the cecum. The terminal ileum was intubated. The colonoscope was withdrawn slowly inspecting the circumference of the colon. Three polyps, including 1/10 mm in size, were noted in the ascending colon. All were removed completely with cold snare polypectomy and retrieved. Very small polyps may have been missed, prep quality was adequate. Retroflexed view of the rectum showed small, non prolapsed nonbleeding internal hemorrhoids. The scope was withdrawn the patient was taken to PACU in good condition. Scope withdrawal time: 9 Sedation minutes: 13 Findings: polyp(s) Specimen(s): other (1. Ascending colon polyps x3) Complications: none Impression: polyps Post-procedure Recommendations: Colonoscopy in 3 years Follow up: as needed Disposition: PACU
[2024-03-22 09:59] VITALS: BP 140/75; PULSE 69; RESP 13; TEMP 36.8; O2SAT 97
[2024-03-22 10:06] VITALS: BP 114/74; PULSE 73; RESP 73; TEMP 36.2; O2SAT 96
--- NOTE | 2024-03-22 20:55 | PM.CALLCOV.1 ---
Call Coverage Note Note Date of Patient Contact: 03/22/24 Time of Patient Contact: 20:55 Narrative of Care Provided: Patient had two episodes of blood per rectum; one at 6PM and one at 8:30PM. It was a mix of blood and clots. He does not feel lightheaded, and he has a wearable heartrate monitor and he is not tachycardic. I advised him to stay on a clear liquid diet and continue to hold his eliquis. I advised him that he may to to the ER now, or he may elect to wait and to go the ER if the bleeding continues, if he feels light-headed, or if his heartrate goes over 100 on his smart watch. He is home with his and they will continue to monitor.
== END 2024-03-22 10:29 | disposition home or self-care (01) ==
PROVIDERS: PCP Family Medicine; Referring Provider Surgery; Visit Provider Surgery
PROC: 0DJD8ZZ Inspection of Lower Intestinal Tract, Via Natural or Artificial Opening Endoscopic (ICD-10-PCS; CPT 45378; principal; 2024-03-22 09:15)
DX: Z12.11 Encounter for screening for malignant neoplasm of colon (principal); K64.8 Other hemorrhoids; D12.2 Benign neoplasm of ascending colon
CPT/HCPCS: 45385; J2704

== ENCOUNTER 2024-03-23 11:35 | Observation (INO) | payer BC, SELFPAY ==
[2024-03-23] VITALS (36 sets, daily range): BP systolic 59–140; BP diastolic 28–80; PULSE 52–104; RESP 13–22; TEMP 36.2–36.8; O2SAT 98–100; BMI 49.4; BMI 49.8
[2024-03-23 12:13] LABS: Add Manual Diff / Slide Review NO; Basophils Absolute Auto 0 /uL (0-100); Basophils Percent Auto 0.6 % (0-2); Eosinophils Absolute Auto 0 /uL (0-450); Eosinophils Percent Auto 0.4 % (2-4); Hematocrit 37.7 % (41-53); Hemoglobin 12.9 g/dL (13.5-17.5); Lymphocytes Absolute Auto 2900 /uL (1100-4500); Lymphocytes Percent Auto 39.9 % (25-40); Mean Corpuscular HGB Conc 34.1 % (30-36); Mean Corpuscular Hemoglobin 29.1 PG (26-34); Mean Corpuscular Volume 85.4 fL (80-100); Monocytes Absolute Auto 400 /uL (0-900); Monocytes Percent Auto 6.1 % (3-14); Neutrophils Absolute Auto 3800 /uL (1500-7000); Platelet Count 189 X10^3/uL (150-400); Red Blood Cell Count 4.42 X10^6/uL (4.5-5.9); Red Cell Distribution Width 14.2 % (11.6-14.8); White Blood Cell Count 7.2 X10^3/uL (4.5-11.0)
--- NOTE | 2024-03-23 12:18 | EKG_ITS ---
[facility] [address], [place] [address] Test Date: 2024-03-23 Pat Name: Darnell Foster Department: 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
[2024-03-23 12:19] LABS: INR 1.1 (0.9-1.3); Prothrombin Time 12.1 SECONDS (9.4-12.5)
[2024-03-23 12:21] LABS: PTT Partial Thromboplastin Tim 35 SECONDS (25.1-36.5)
[2024-03-23 12:23] LABS: Alanine Aminotransferase 32 IU/L (<50); Albumin 3.8 g/dL (3.5-5.0); Albumin Globulin Ratio 1.4 (1.0-2.8); Alkaline Phosphatase 59 U/L (38-126); Aspartate Aminotransferase 32 IU/L (17-59); BUN Creatinine Ratio 21.2 (6-22); Bilirubin Total 0.7 mg/dL (0.2-1.3); Blood Urea Nitrogen 18 mg/dL (9-20); Calcium 8.4 mg/dL (8.4-10.2); Carbon Dioxide 22 mmol/L (22-32); Chloride 108 mmol/L (98-107); Estimated Glomerular Filt Rate > 60 mL/min (>60); Globulin 2.7 g/dL (1.7-4.1); Glucose 130 mg/dL (70-100); HEMOLYSIS < 15 (0-50); Potassium 4.4 mmol/L (3.4-5.1); Sodium 136 mmol/L (137-145); Total Protein 6.5 g/dL (6.3-8.2)
--- NOTE | 2024-03-23 13:01 | ED_ITS ---
HPI - GI Bleed General Chief complaint: GI Bleed Stated complaint: bleeding fron colon after colonoscopy T-1, dizzy Time Seen by Provider: 03/23/24 12:51 Source: patient, RN notes reviewed and old records reviewed Mode of arrival: Ambulatory Limitations: no limitations History of Present Illness HPI Narrative: 48-year-old male history of pulmonary embolism on Eliquis, prior gastric presents with complaint of rectal bleeding after a colonoscopy yesterday. Patient states he had a colonoscopy yesterday for his screening exam. Was found to have 3 polyps which he states he was told they were removed. Started having what he describes as blueberry jam last night several times overnight. Denies fevers or chills. Denies any chest pain or shortness of breath. Feels little bit dizzy. Denies any abdominal, back or flank pain. Denies rectal pain except right before a bowel movement. Denies urinary symptoms. Patient states has not had similar issues in the past. Takes Eliquis for prior pulmonary emboli. Has had prior back surgery, gastric sleeve, orthopedic surgery. No known drug allergies. No tobacco occasional alcohol, no recreational drugs. Sherine Mcclellan as his primary care provider. Dr. Monterroso [facility] surgery performed his scope. Patient notes his last dose of Eliquis was he was not had any additional since his colonoscopy. Related Data Home Medications Medication Instructions Recorded Confirmed ResMed AirCurve 10 VAuto 04/02/21 03/23/24 apixaban 5 mg tablet (Eliquis) 5 mg PO BID 06/13/23 03/23/24 bupropion HCl 300 mg 24 hr tablet, 300 mg PO QAM 03/23/24 03/23/24 extended release naltrexone 50 mg tablet 50 mg PO DAILY 03/23/24 03/23/24 Previous Rx's Medication Instructions Recorded ipratropium bromide 42 mcg (0.06 2 spray intranasal TID #15 mL 11/20/21 %) nasal spray Allergies Allergy/AdvReac Type Severity Reaction Status Date / Time No Known Drug Allergies Allergy Verified 03/24/24 07:29 Review of Systems Review of Systems ROS Unobtainable: All systems reviewed & are unremarkable except as noted in HPI and below Patient History Medical History Colon cancer screening (03/22/24) Social History household members: spouse and children Smoking Status: Never smoker alcohol intake: current Smoking Status: Never smoker alcohol intake frequency: holidays/special occasions only Exam Narrative Exam Narrative: GENERAL: Alert and oriented x three, mild, no pallor. HEENT: Head normocephalic, atraumatic, EOMI, pupils reactive, face symmetric, moist mucous membranes NECK: Supple, full range of motion CARDIOVASCULAR: Regular rate and rhythm without murmurs, rubs or gallops. RESPIRATORY: Breath sounds equal bilaterally, no wheezes rales or rhonchi. ABDOMEN: Soft, nontender. Normoactive bowel sounds all 4 quadrants. No guarding or rebound, rigidity, no mass : No CVA tenderness EXTREMITIES: Normal range of motion, no clubbing or edema. Neurovascularly intact NEUROLOGICAL: Cranial nerves II through XII grossly intact. Moving all extremities SKIN: Warm, dry, no petechiae, no rashes or lesions. Initial Vital Signs Initial Vital Signs: Vital Signs Temperature 97.5 F L 03/23/24 11:39 Pulse Rate 81 03/23/24 11:39 Respiratory Rate 16 03/23/24 11:39 Blood Pressure 140/80 03/23/24 11:39 Pulse Oximetry 100 03/23/24 11:39 Oxygen Delivery Method Room Air 03/23/24 11:39 Course Orders Ordered: Bupropion HCl (Bupropion Xl 150 Mg Tab) 300 mg PO DAILY [facility] Last Admin: 03/24/24 12:02 Dose: 300 mg Documented By: MIA Ipratropium [place] (Ipratropium 0.06% Nasal 15 Ml) 2 spray NASAL TID [facility] Last Admin: 03/24/24 09:23 Dose: Not Given Documented By: Admin: 03/23/24 23:08 Dose: Not Given Documented By: Admin: 03/23/24 16:16 Dose: Not Given Documented By: CRUZITO Naloxone HCl (Naloxone 0.4 Mg/Ml Vial) 0.2 mg IV Q2MIN PRN PRN Reason: Opiate Reversal Nf - Naltrexone 50 (Mg Tablet) 50 mg PO DAILY [facility] Last Admin: 03/24/24 12:09 Dose: Not Given Documented By: MIA Ondansetron HCl (Ondansetron 4 Mg/2 Ml Inj) 4 mg IV NOW PRN PRN Reason: Nausea And Vomiting Ondansetron HCl (Ondansetron 4 Mg Odt) 4 mg SL NOW PRN PRN Reason: Nausea And Vomiting Discontinued Medications Cyanocobalamin (Cyanocobalamin 1,000 Mcg/Ml Vial) 1,000 mcg SUBCUT NOW ONE Stop: 03/24/24 08:33 Last Admin: 03/24/24 09:00 Dose: Not Given Documented By: MERVIN Lactated Ringer's (Lactated Ringers) 1,000 mls @ 125 mls/hr IV CONT MIGDALIA Last Admin: 03/24/24 07:30 Dose: 125 mls/hr Documented By: Infusion: 03/24/24 00:52 Dose: Infused Documented By: Admin: 03/23/24 16:52 Dose: 125 mls/hr Documented By: CRUZITO Sodium Chloride (Normal Saline 0.9%) 1,000 mls @ 1,000 mls/hr IV BOLUS ONE Stop: 03/23/24 19:23 Last Admin: 03/23/24 18:41 Dose: 1,000 mls/hr Documented By: SHIVAM Sodium Chloride (Normal Saline 0.9%) 1,000 mls @ 1,000 mls/hr IV BOLUS ONE Stop: 03/23/24 19:24 Last Admin: 03/23/24 18:41 Dose: 1,000 mls/hr Documented By: SHIVAM Ferric Sodium Gluconate 125 mg (/ Sodium Chloride) 110 mls @ 110 mls/hr IV NOW ONE Stop: 03/24/24 09:44 Last Admin: 03/24/24 08:54 Dose: 110 mls/hr Documented By: MERVIN Pantoprazole Sodium (Pantoprazole 40 Mg Vial) 80 mg IV NOW ONE Stop: 03/23/24 11:47 Last Admin: 03/23/24 13:28 Dose: Not Given Documented By: Polyethylene Glycol/Electrolytes ([id number]/Sod Sulf,Bicarb,Cl/Kcl 4,000 Ml Solution) 2,000 ml PO NOW ONE Stop: 03/23/24 14:27 Last Admin: 03/23/24 16:50 Dose: 2,000 ml Documented By: CRUZITO Vital Signs Vital signs: Vital Signs - 8 hr 03/23/24 11:39 03/23/24 12:12 03/23/24 12:13 Temperature 97.5 F L Pulse Rate 81 61 Respiratory Rate 16 Blood Pressure 140/80 104/57 L Pulse Oximetry 100 99 Oxygen Delivery Method Room Air 03/23/24 12:13 03/23/24 12:20 03/23/24 12:20 Temperature Pulse Rate 61 65 Respiratory Rate 13 Blood Pressure 101/64 Pulse Oximetry 99 99 Oxygen Delivery Method 03/23/24 12:29 03/23/24 12:29 03/23/24 12:30 Temperature Pulse Rate 58 L Respiratory Rate 20 Blood Pressure 102/55 L 105/57 L Pulse Oximetry 98 Oxygen Delivery Method 03/23/24 12:30 03/23/24 12:41 03/23/24 12:41 Temperature Pulse Rate 61 54 L Respiratory Rate 21 18 Blood Pressure 85/46 L Pulse Oximetry 98 100 Oxygen Delivery Method 03/23/24 12:43 03/23/24 12:43 03/23/24 12:50 Temperature Pulse Rate 52 L Respiratory Rate 19 Blood Pressure 84/49 L 91/51 L Pulse Oximetry 100 Oxygen Delivery Method Room Air 03/23/24 12:50 03/23/24 12:55 03/23/24 12:55 Temperature Pulse Rate 56 L 58 L Respiratory Rate 21 19 Blood Pressure 97/55 L Pulse Oximetry 100 100 Oxygen Delivery Method MDM - GI Bleed Lab Data 03/24/24 18:00 03/23/24 11:52 Labs: Lab Results 03/23/24 Range/Units 11:52 WBC 7.2 (4.5-11.0) X10^3/uL RBC 4.42 L (4.5-5.9) X10^6/uL Hgb 12.9 L (13.5-17.5) g/dL Hct 37.7 L (41-53) % MCV 85.4 (80-100) fL MCH 29.1 (26-34) PG MCHC 34.1 (30-36) % RDW 14.2 (11.6-14.8) % Plt Count 189 (150-400) X10^3/uL Neut % (Auto) 53.0 (50-75) % Lymph % (Auto) 39.9 (25-40) % [place] % (Auto) 6.1 (3-14) % Eos % (Auto) 0.4 L (2-4) % Baso % (Auto) 0.6 (0-2) % Neut # (Auto) 3800 (3485-4900) /uL Lymph # (Auto) 2900 (5903-5956) /uL [place] # (Auto) 400 (0-900) /uL Eos # (Auto) 0 (0-450) /uL Baso # (Auto) 0 (0-100) /uL PT 12.1 (9.4-12.5) SECONDS INR 1.1 (0.9-1.3) APTT 35 (25.1-36.5) SECONDS Sodium 136 L (137-145) mmol/L Potassium 4.4 (3.4-5.1) mmol/L Chloride 108 H (98-107) mmol/L Carbon Dioxide 22 (22-32) mmol/L BUN 18 (9-20) mg/dL Creatinine 0.85 (0.66-1.25) mg/dL Estimated GFR > 60 (>60) mL/min BUN/Creatinine Ratio 21.2 (6-22) Glucose 130 H (70-100) mg/dL Calcium 8.4 (8.4-10.2) mg/dL Total Bilirubin 0.7 (0.2-1.3) mg/dL AST 32 (17-59) IU/L ALT 32 (<50) IU/L Alkaline Phosphatase 59 (38-126) U/L Total Protein 6.5 (6.3-8.2) g/dL Albumin 3.8 (3.5-5.0) g/dL Globulin 2.7 (1.7-4.1) g/dL Albumin/Globulin Ratio 1.4 (1.0-2.8) Blood Type A Positive Antibody Screen Negative Crossmatch See Detail Point of Care Testing Stool Occult Blood Positive MDM Narrative Medical decision making narrative: 48-year-old male history of colonoscopy yesterday on Eliquis last dose was . Patient's white count 7 point hemoglobin is 12.9 prior was 14.7 but in 2020 platelets are 189. Electrolytes shows sodium 136 chloride of 108 potassium is 4.4 creatinine 0.85 with a BUN 18 glucose is 130 LFTs are otherwise appropriate. Coags are negative. Patient has been type and screened. Pressure has not improved we will continue to monitor as patient may ultimately end up requiring blood. Patient did receive a dose of Protonix but not likely source of his bleeding. Had 1 large bowel movement here pressures has been soft receiving some fluid. I spoke with Dr. Monterroso who accepts for inpatient. Plan for repeat H&H at 4 hours and possible OR for evaluation has a suspect 1 of the colon polyps removed as bleeding. Patient is agreeable to blood as needed. 1306 Dr. Monterroso, general surgery script patient yesterday he was aware of the patient. Suspect probably 1 of the polyps is bleeding we will likely take back to the OR for re-evaluation asked for repeat H&H and 4 hours. Did discuss patient's pressures has been soft. Admit to Dr. Monterroso. Discharge Plan Departure Patient Disposition: Admitted As Inpatient Clinical Impression: Acute GI bleeding, S/P colonoscopy with polypectomy Admit Date/Time: 03/23/24 13:25 Admit Provider: Everett Monterroso
--- NOTE | 2024-03-23 14:57 | P.HP_ITS ---
History of Present Illness History of Present Illness Date Patient Seen: 03/23/24 Time Patient Seen: 14:57 Chief complaint: bleeding fron colon after colonoscopy T-1, dizzy Narrative: 48 year old WM underwent colonoscopy with polypectomy x 3 yesterday, off his apixaban for at least 3 days according to the patient, starting passing blood and clots yesterday evening. Brought into the ER, hemoglobin is 11 and he has as systolic pressure in the 90s. Will admit for observation. [facility] Medical History Colon cancer screening (03/22/24) Social History household members: spouse and children Smoking Status: Never smoker alcohol intake: current Meds Home Medications and Allergies Home Medications Medication Instructions Recorded Confirmed Type ResMed AirCurve 10 VAuto 04/02/21 03/23/24 History ipratropium bromide 42 mcg (0.06 2 spray intranasal TID #15 mL 11/20/21 03/23/24 Rx %) nasal spray apixaban 5 mg tablet (Eliquis) 5 mg PO BID 06/13/23 03/23/24 History bupropion HCl 300 mg 24 hr tablet, 300 mg PO QAM 03/23/24 03/23/24 History extended release naltrexone 50 mg tablet 50 mg PO DAILY 03/23/24 03/23/24 History Allergies Allergy/AdvReac Type Severity Reaction Status Date / Time No Known Drug Allergies Allergy Verified 03/22/24 08:39 Review of Systems Review of Systems ROS: Yes All systems reviewed with the patient and are negative except as otherwise documented Exam Vital Signs (past 8 hours): - 03/23/24 11:39 03/23/24 12:12 03/23/24 12:13 Temperature 97.5 F L Pulse Rate 81 61 Respiratory Rate 16 Blood Pressure 140/80 104/57 L Pulse Oximetry 100 99 Oxygen Delivery Method Room Air 03/23/24 12:13 03/23/24 12:20 03/23/24 12:20 Temperature Pulse Rate 61 65 Respiratory Rate 13 Blood Pressure 101/64 Pulse Oximetry 99 99 Oxygen Delivery Method 03/23/24 12:29 03/23/24 12:29 03/23/24 12:30 Temperature Pulse Rate 58 L Respiratory Rate 20 Blood Pressure 102/55 L 105/57 L Pulse Oximetry 98 Oxygen Delivery Method 03/23/24 12:30 03/23/24 12:41 03/23/24 12:41 Temperature Pulse Rate 61 54 L Respiratory Rate 21 18 Blood Pressure 85/46 L Pulse Oximetry 98 100 Oxygen Delivery Method 03/23/24 12:43 03/23/24 12:43 03/23/24 12:50 Temperature Pulse Rate 52 L Respiratory Rate 19 Blood Pressure 84/49 L 91/51 L Pulse Oximetry 100 Oxygen Delivery Method Room Air 03/23/24 12:50 03/23/24 12:55 03/23/24 12:55 Temperature Pulse Rate 56 L 58 L Respiratory Rate 21 19 Blood Pressure 97/55 L Pulse Oximetry 100 100 Oxygen Delivery Method 03/23/24 13:00 03/23/24 13:00 03/23/24 13:06 Temperature Pulse Rate 60 Respiratory Rate 19 Blood Pressure 109/56 L 110/75 Pulse Oximetry 100 Oxygen Delivery Method 03/23/24 13:06 03/23/24 13:11 03/23/24 13:11 Temperature Pulse Rate 62 62 Respiratory Rate 17 21 Blood Pressure 111/60 Pulse Oximetry 100 100 Oxygen Delivery Method 03/23/24 13:15 03/23/24 13:15 03/23/24 13:20 Temperature Pulse Rate 65 Respiratory Rate 18 Blood Pressure 115/58 L 102/57 L Pulse Oximetry 100 Oxygen Delivery Method 03/23/24 13:20 03/23/24 13:25 03/23/24 13:25 Temperature Pulse Rate 59 L 63 Respiratory Rate 19 18 Blood Pressure 96/55 L Pulse Oximetry 100 100 Oxygen Delivery Method 03/23/24 13:30 03/23/24 13:30 03/23/24 13:35 Temperature Pulse Rate 62 62 Respiratory Rate 14 14 Blood Pressure 102/55 L Pulse Oximetry 100 100 Oxygen Delivery Method 03/23/24 13:35 03/23/24 13:40 03/23/24 13:40 Temperature Pulse Rate 59 L Respiratory Rate 17 Blood Pressure 111/57 L 107/58 L Pulse Oximetry 100 Oxygen Delivery Method 03/23/24 13:45 03/23/24 13:45 03/23/24 13:50 Temperature Pulse Rate 61 Respiratory Rate 15 Blood Pressure 104/57 L 105/52 L Pulse Oximetry 100 Oxygen Delivery Method Room Air 03/23/24 13:50 03/23/24 13:55 03/23/24 13:55 Temperature Pulse Rate 63 61 Respiratory Rate 16 16 Blood Pressure 103/50 L Pulse Oximetry 100 100 Oxygen Delivery Method 03/23/24 14:00 03/23/24 14:00 03/23/24 14:05 Temperature Pulse Rate 61 Respiratory Rate 15 Blood Pressure 101/53 L 99/55 L Pulse Oximetry 100 Oxygen Delivery Method 03/23/24 14:05 03/23/24 14:10 03/23/24 14:10 Temperature Pulse Rate 59 L 59 L Respiratory Rate 13 22 Blood Pressure 94/50 L Pulse Oximetry 98 99 Oxygen Delivery Method Oxygen Delivery Method Room Air Narrative Exam Narrative: Gen: NAD, sitting comfortably in bed, appears well HEENT: Sclera are anicteric, head is normocephalic and atraumatic, trachea is midline. CV: RRR, no JVD Resp: clear to auscultation bilaterally, equal chest wall movement bilaterally Abd: soft, nontender, normoactive bowel sounds Ext: no edema, full range of motion Neuro: Cranial nerves II-XII grossly intact, no focal deficits Skin: No erythema or ecchymosis Objective Labs 03/23/24 11:52 03/23/24 11:52 Labs: Laboratory Results - last 24 hr 03/23/24 11:52 WBC 7.2 RBC 4.42 L Hgb 12.9 L Hct 37.7 L MCV 85.4 MCH 29.1 MCHC 34.1 RDW 14.2 Plt Count 189 Neut % (Auto) 53.0 Lymph % (Auto) 39.9 [place] % (Auto) 6.1 Eos % (Auto) 0.4 L Baso % (Auto) 0.6 Neut # (Auto) 3800 Lymph # (Auto) 2900 [place] # (Auto) 400 Eos # (Auto) 0 Baso # (Auto) 0 PT 12.1 INR 1.1 APTT 35 Sodium 136 L Potassium 4.4 Chloride 108 H Carbon Dioxide 22 BUN 18 Creatinine 0.85 Estimated GFR > 60 BUN/Creatinine Ratio 21.2 Glucose 130 H Calcium 8.4 Total Bilirubin 0.7 AST 32 ALT 32 Alkaline Phosphatase 59 Total Protein 6.5 Albumin 3.8 Globulin 2.7 Albumin/Globulin Ratio 1.4 Blood Type A Positive Antibody Screen Negative Assessment & Plan Assessment and plan (1) Acute GI bleeding: Status: Acute Plan: Repeat hemoglobin at 4:00 p.m.. If continuing to drift, or continued hypotension we will need repeat colonoscopy. Bowel preparation ordered. 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
[2024-03-23 16:18] LABS: Hematocrit 34.8 % (41-53); Hemoglobin 11.8 g/dL (13.5-17.5)
[2024-03-23] MEDS: PEG3350/SOD SULF,BICARB,CL/KCL 4,000 ML SOLUTION 2000 ML PO (16:50)
[2024-03-23] MEDS: LACTATED RINGERS 1,000 ML 125 ML IV (16:52)
--- NOTE | 2024-03-23 17:02 | PC.NURSE ---
Notified Dr. Monterroso that pt's 1600 H/H was 11.8/34.8 (down from 12.9/37.7). Pt's last BP was 104/57, HR 69. Dr. Monterroso ordered bowel prep for pt, and he will be strict NPO at midnight for possible colonoscopy tomorrow. Pt has had one bloody BM so far since being admitted to the floor, and Dr. Monterroso is aware. Pt currently resting in bed with call light within reach. Educated pt on calling staff when he needs to get out of bed.
[2024-03-23 18:28] LABS: Hematocrit 31.5 % (41-53); Hemoglobin 10.8 g/dL (13.5-17.5)
--- NOTE | 2024-03-23 18:37 | P.CONS_ITS ---
History of Present Illness Consult details Date Patient Seen: 03/23/24 Time Patient Seen: 17:00 Chief complaint: bleeding fron colon after colonoscopy T-1, dizzy Requesting provider: Everett Monterroso Narrative: The patient was admitted to general surgery for rectal bleeding. He had a colonoscopy yesterday with 3 polyps removed. He was had intermittent maroon rectal bleeding since. He was admitted at about 1400 today. The plan is prep and colonoscopy. The patient again has been having intermittent rectal bleeding today. He had a syncopal episode and was assisted to the floor when a stat call was made at about 17 30. He was diaphoretic and somewhat confused. He was placed in Trendelenburg with his feet elevated and bolused with 2 L of saline through 2 peripheral IVs. He improved rapidly. He was able to stand up and use bedside commode with more rectal bleeding. A stat H&H was ordered. Completion of 2 L of saline bolus followed. Details were transmitted to the general surgeon. They requested consultation, blood as ordered. He takes apixaban for a pulmonary embolism several years ago, unprovoked. He has been on this indefinitely. His last dose was 3 days ago. Meds Home Medications and Allergies Home Medications Medication Instructions Recorded Confirmed Type ResMed AirCurve 10 VAuto 04/02/21 03/23/24 History ipratropium bromide 42 mcg (0.06 2 spray intranasal TID #15 mL 11/20/21 03/23/24 Rx %) nasal spray apixaban 5 mg tablet (Eliquis) 5 mg PO BID 06/13/23 03/23/24 History bupropion HCl 300 mg 24 hr tablet, 300 mg PO QAM 03/23/24 03/23/24 History extended release naltrexone 50 mg tablet 50 mg PO DAILY 03/23/24 03/23/24 History Allergies Allergy/AdvReac Type Severity Reaction Status Date / Time No Known Drug Allergies Allergy Verified 03/22/24 08:39 Review of Systems Review of Systems Narrative: He denies chest pain or dyspnea. All else unremarkable after being reviewed. Exam Vital Signs (past 8 hours): - 03/23/24 11:39 03/23/24 12:00 03/23/24 12:12 Temperature 97.5 F L 97.1 F L Pulse Rate 81 67 61 Respiratory Rate 16 18 Blood Pressure 140/80 124/80 Pulse Oximetry 100 100 99 Oxygen Delivery Method Room Air Oxygen Flow Rate 0 03/23/24 12:13 03/23/24 12:13 03/23/24 12:20 Temperature Pulse Rate 61 Respiratory Rate Blood Pressure 104/57 L 101/64 Pulse Oximetry 99 Oxygen Delivery Method Oxygen Flow Rate 03/23/24 12:20 03/23/24 12:29 03/23/24 12:29 Temperature Pulse Rate 65 58 L Respiratory Rate 13 20 Blood Pressure 102/55 L Pulse Oximetry 99 98 Oxygen Delivery Method Oxygen Flow Rate 03/23/24 12:30 03/23/24 12:30 03/23/24 12:41 Temperature Pulse Rate 61 Respiratory Rate 21 Blood Pressure 105/57 L 85/46 L Pulse Oximetry 98 Oxygen Delivery Method Oxygen Flow Rate 03/23/24 12:41 03/23/24 12:43 03/23/24 12:43 Temperature Pulse Rate 54 L 52 L Respiratory Rate 18 19 Blood Pressure 84/49 L Pulse Oximetry 100 100 Oxygen Delivery Method Room Air Oxygen Flow Rate 03/23/24 12:50 03/23/24 12:50 03/23/24 12:55 Temperature Pulse Rate 56 L Respiratory Rate 21 Blood Pressure 91/51 L 97/55 L Pulse Oximetry 100 Oxygen Delivery Method Oxygen Flow Rate 03/23/24 12:55 03/23/24 13:00 03/23/24 13:00 Temperature Pulse Rate 58 L 60 Respiratory Rate 19 19 Blood Pressure 109/56 L Pulse Oximetry 100 100 Oxygen Delivery Method Oxygen Flow Rate 03/23/24 13:06 03/23/24 13:06 03/23/24 13:11 Temperature Pulse Rate 62 Respiratory Rate 17 Blood Pressure 110/75 111/60 Pulse Oximetry 100 Oxygen Delivery Method Oxygen Flow Rate 03/23/24 13:11 03/23/24 13:15 03/23/24 13:15 Temperature Pulse Rate 62 65 Respiratory Rate 21 18 Blood Pressure 115/58 L Pulse Oximetry 100 100 Oxygen Delivery Method Oxygen Flow Rate 03/23/24 13:20 03/23/24 13:20 03/23/24 13:25 Temperature Pulse Rate 59 L Respiratory Rate 19 Blood Pressure 102/57 L 96/55 L Pulse Oximetry 100 Oxygen Delivery Method Oxygen Flow Rate 03/23/24 13:25 03/23/24 13:30 03/23/24 13:30 Temperature Pulse Rate 63 62 Respiratory Rate 18 14 Blood Pressure 102/55 L Pulse Oximetry 100 100 Oxygen Delivery Method Oxygen Flow Rate 03/23/24 13:35 03/23/24 13:35 03/23/24 13:40 Temperature Pulse Rate 62 Respiratory Rate 14 Blood Pressure 111/57 L 107/58 L Pulse Oximetry 100 Oxygen Delivery Method Oxygen Flow Rate 03/23/24 13:40 03/23/24 13:45 03/23/24 13:45 Temperature Pulse Rate 59 L 61 Respiratory Rate 17 15 Blood Pressure 104/57 L Pulse Oximetry 100 100 Oxygen Delivery Method Room Air Oxygen Flow Rate 03/23/24 13:50 03/23/24 13:50 03/23/24 13:55 Temperature Pulse Rate 63 Respiratory Rate 16 Blood Pressure 105/52 L 103/50 L Pulse Oximetry 100 Oxygen Delivery Method Oxygen Flow Rate 03/23/24 13:55 03/23/24 14:00 03/23/24 14:00 Temperature Pulse Rate 61 61 Respiratory Rate 16 15 Blood Pressure 101/53 L Pulse Oximetry 100 100 Oxygen Delivery Method Oxygen Flow Rate 03/23/24 14:05 03/23/24 14:05 03/23/24 14:10 Temperature Pulse Rate 59 L Respiratory Rate 13 Blood Pressure 99/55 L 94/50 L Pulse Oximetry 98 Oxygen Delivery Method Oxygen Flow Rate 03/23/24 14:10 03/23/24 16:00 Temperature 97.8 F Pulse Rate 59 L 69 Respiratory Rate 22 20 Blood Pressure 104/57 L Pulse Oximetry 99 100 Oxygen Delivery Method Oxygen Flow Rate 0 Oxygen Delivery Method Room Air Oxygen Flow Rate 0 Narrative Exam Narrative: NAD, alert and oriented, fluent speech, calm. This is after he recovered, initially was confused and diaphoretic. Normocephalic skull, EOMI, anicteric sclera, symmetric pupils. Oropharynx unremarkable, no droop. Neck supple, midline trachea, no adenopathy. Lungs clear, normal rate and effort. Heart regular, no murmur gallop or rub. Abdomen is soft, non distended and non tender. Extremities are free of edema. Skin is free of rash or lesions. Joints are not swollen or deformed. Judgment appears to be normal. Dark red blood in the bedside commode. Objective Labs 03/23/24 18:18 03/23/24 11:52 Labs: Laboratory Results - last 24 hr 03/23/24 03/23/24 03/23/24 11:52 15:55 18:18 WBC 7.2 RBC 4.42 L Hgb 12.9 L 11.8 L 10.8 L Hct 37.7 L 34.8 L 31.5 L MCV 85.4 MCH 29.1 MCHC 34.1 RDW 14.2 Plt Count 189 Neut % (Auto) 53.0 Lymph % (Auto) 39.9 [place] % (Auto) 6.1 Eos % (Auto) 0.4 L Baso % (Auto) 0.6 Neut # (Auto) 3800 Lymph # (Auto) 2900 [place] # (Auto) 400 Eos # (Auto) 0 Baso # (Auto) 0 PT 12.1 INR 1.1 APTT 35 Sodium 136 L Potassium 4.4 Chloride 108 H Carbon Dioxide 22 BUN 18 Creatinine 0.85 Estimated GFR > 60 BUN/Creatinine Ratio 21.2 Glucose 130 H Calcium 8.4 Total Bilirubin 0.7 AST 32 ALT 32 Alkaline Phosphatase 59 Total Protein 6.5 Albumin 3.8 Globulin 2.7 Albumin/Globulin Ratio 1.4 Blood Type A Positive Antibody Screen Negative [facility] Medical History Colon cancer screening (03/22/24) Social History household members: spouse and children Tobacco & Substance Use Smoking Status: Never smoker alcohol intake: current Assessment & Plan Assessment & Plan narrative: 1. Syncope likely related to acute blood loss, new and active. 2. Blood loss anemia, present on admission and active. 3. Recent polypectomy (x3) with rectal bleeding, present on admission and active. 4. Chronic apixaban for DVT, held for the last 3 days. 5. Morbid obesity with BMI of 48, present on admission stable. Plan: -1 unit of packed cells now -q.4 hours H and H is overnight -blood as needed -general surgery notified of clinical status change Time-Based Coding :: 35 min spent with patient and on the chart (including review of chart, obtaining history, exam, reviewing outside data, placing orders, documenting exam and treatment plan, and counseling patient) on 03/23.
[2024-03-23] MEDS: SODIUM CHLORIDE 0.9% 1,000 ML 1000 ML IV ×2 (18:41)
[2024-03-23 21:03] LABS: Hematocrit 25.5 % (41-53); Hemoglobin 8.6 g/dL (13.5-17.5)
[2024-03-24] VITALS (17 sets, daily range): BP systolic 93–132; BP diastolic 41–78; PULSE 64–84; RESP 14–23; TEMP 36.2–37; O2SAT 96–100
[2024-03-24 03:54] LABS: Hemoglobin 9.6 g/dL (13.5-17.5)
--- NOTE | 2024-03-24 07:24 | PM.PREOP ---
Pre-operative Note Interval Note History & Physical reviewed/Exam performed by Physician: Yes Changes to H&P: Yes H&P completed within 30 days and has changed as indicated here:: Patient had a syncopal episode and was transfused. Hgb this AM is 9. For colonoscopy with control of bleeding this AM.
[2024-03-24] MEDS: LACTATED RINGERS 1,000 ML 125 ML IV (07:30)
--- NOTE | 2024-03-24 07:32 | PC.NURSE ---
0720 - Patient transported to PACU via stretcher
--- NOTE | 2024-03-24 07:51 | P.PN_ITS ---
Subjective Subjective Interval history: Summary: The patient was admitted to general surgery for rectal bleeding. He had a colonoscopy yesterday with 3 polyps removed. He was had intermittent maroon rectal bleeding since. He was admitted at about 1400 today. The plan is prep and colonoscopy. The patient again has been having intermittent rectal bleeding today. He had a syncopal episode and was assisted to the floor when a stat call was made at about 17 30. He was diaphoretic and somewhat confused. He was placed in Trendelenburg with his feet elevated and bolused with 2 L of saline through 2 peripheral IVs. He improved rapidly. He was able to stand up and use bedside commode with more rectal bleeding. A stat H&H was ordered. Completion of 2 L of saline bolus followed. Details were transmitted to the general surgeon. They requested consultation, blood as ordered. He takes apixaban for a pulmonary embolism several years ago, unprovoked. He has been on this indefinitely. His last dose was 3 days ago. S: He was doing well after his colonoscopy. No pain. He had 1 polyp site that was bleeding and was clipped. Exam Vital Signs (past 8 hours): - 03/24/24 01:00 03/24/24 02:45 03/24/24 03:15 Temperature 98.3 F 98.4 F 98.5 F Pulse Rate 73 70 64 Respiratory Rate 18 20 20 Blood Pressure 110/63 93/41 L 106/66 Pulse Oximetry 98 Oxygen Delivery Method 03/24/24 04:49 03/24/24 05:04 03/24/24 06:50 Temperature 98.5 F 98.5 F 98.6 F Pulse Rate 70 68 66 Respiratory Rate 18 18 18 Blood Pressure 103/62 114/59 L 111/50 L Pulse Oximetry Oxygen Delivery Method 03/24/24 07:33 Temperature 97.6 F Pulse Rate 84 Respiratory Rate 14 Blood Pressure 132/78 Pulse Oximetry 98 Oxygen Delivery Method Room Air Oxygen Delivery Method Room Air Oxygen Flow Rate 0 Narrative Exam Narrative: NAD, alert and oriented. Fluent speech. Lungs are clear, normal rate and effort. Heart is regular, no murmur gallop or rub. Abdomen is soft, non distended. Extremities are free of edema. Objective Labs 03/24/24 03:39 03/23/24 11:52 Labs: Laboratory Results - last 24 hr 03/23/24 03/23/24 03/23/24 11:52 15:55 18:18 WBC 7.2 RBC 4.42 L Hgb 12.9 L 11.8 L 10.8 L Hct 37.7 L 34.8 L 31.5 L MCV 85.4 MCH 29.1 MCHC 34.1 RDW 14.2 Plt Count 189 Neut % (Auto) 53.0 Lymph % (Auto) 39.9 [place] % (Auto) 6.1 Eos % (Auto) 0.4 L Baso % (Auto) 0.6 Neut # (Auto) 3800 Lymph # (Auto) 2900 [place] # (Auto) 400 Eos # (Auto) 0 Baso # (Auto) 0 PT 12.1 INR 1.1 APTT 35 Sodium 136 L Potassium 4.4 Chloride 108 H Carbon Dioxide 22 BUN 18 Creatinine 0.85 Estimated GFR > 60 BUN/Creatinine Ratio 21.2 Glucose 130 H Calcium 8.4 Total Bilirubin 0.7 AST 32 ALT 32 Alkaline Phosphatase 59 Total Protein 6.5 Albumin 3.8 Globulin 2.7 Albumin/Globulin Ratio 1.4 Blood Type A Positive Antibody Screen Negative Crossmatch See Detail 03/23/24 03/24/24 20:50 03:39 WBC RBC Hgb 8.6 L 9.6 L Hct 25.5 L 28.0 L MCV MCH MCHC RDW Plt Count Neut % (Auto) Lymph % (Auto) [place] % (Auto) Eos % (Auto) Baso % (Auto) Neut # (Auto) Lymph # (Auto) [place] # (Auto) Eos # (Auto) Baso # (Auto) PT INR APTT Sodium Potassium Chloride Carbon Dioxide BUN Creatinine Estimated GFR BUN/Creatinine Ratio Glucose Calcium Total Bilirubin AST ALT Alkaline Phosphatase Total Protein Albumin Globulin Albumin/Globulin Ratio Blood Type Antibody Screen Crossmatch COUNTS INCLUDE 234 BEDS AT THE [facility] Medical History Colon cancer screening (03/22/24) Social History household members: spouse and children Smoking Status: Never smoker alcohol intake: current Assessment & Plan Assessment & Plan narrative: 1. Syncope likely related to acute blood loss, new and active. 2. Blood loss anemia, present on admission and active. 3. Recent polypectomy (x3) with rectal bleeding, present on admission and active. 4. Chronic apixaban for DVT, held for the last 3 days. 5. Morbid obesity with BMI of 48, present on admission stable. Overnight: He had a 2nd unit of blood and 1 fluid bolus. Colonoscopy this morning revealed a bleeding polypectomy site which was clipped. Plan: -monitor clinical status, rectal output, and hemoglobin today. -discussed timing of discharge with General surgery. Time-Based Coding :: [TOTAL MINUTES] spent with patient and on the chart (including review of chart, obtaining history, exam, reviewing outside data, placing orders, documenting exam and treatment plan, and counseling patient) on [DATE]. Quality VTE Deep Vein Thrombosis/Pulmonary Embolism Present on Admission: No
--- NOTE | 2024-03-24 08:25 | PM.OP.COLON ---
Operative Date/Time/Diagnoses Date of procedure: 03/24/24 Time of procedure: 08:25 Pre-op diagnosis: post-polypectomy bleeding Post-op diagnosis: same Procedure & Clinicians Study performed: colonoscopy with clipping of polyp site Same procedure as scheduled: Yes Indications: patient had 3 ascending colon polyps removed, had stopped anticoagulants 3-4 days prior, developed bleeding after Surgeon: Everett Monterroso Procedure Notes SCOAP/Timeout: performed Procedure in detail: Time-out was performed. Mac was induced. Patient was placed in left lateral decubitus position. The perineum was inspected without any gross abnormality. Lubricated pediatric colonoscope was inserted and advanced to the cecum. There was fresh blood throughout the colon this was copiously irrigated. The obvious site of bleeding was a stalk from a polypectomy and 2 clips were applied, hemostasis was achieved. As much blood and hematoma as possible was irrigated and suctioned from the colon to prevent confusion throughout the day.. The colonoscope was withdrawn slowly inspecting the circumference of the colon. Very small polyps may have been missed, prep quality was adequate. Retroflexed view of the rectum showed small, non prolapsed nonbleeding internal hemorrhoids. The scope was withdrawn the patient was taken to PACU in good condition. Scope withdrawal time: 30 Findings: other findings (bleeding post-polypectomy site) Specimen(s): none sent Complications: none Impression: Successful clipping of post polypectomy bleed Post-procedure Recommendations: Colonoscopy in 3 years Plan for aftercare: return to inpatient for observation today Follow up: weeks Disposition: PACU
[2024-03-24] MEDS: SODIUM FERRIC GLUCONAT/SUCROSE 125 MG in SODIUM CHLORIDE 0.9% 100 ML 110 MG IV (08:54)
--- NOTE | 2024-03-24 10:16 | PC.NURSE ---
Late entry 03/23/24 1800 - Patient fell while ambulating, assisted from chair to bedside commode. Fall witnessed by RN Alina Coronel. Patient not injured. RN was injured and walked down to ED after incident. Patient able to ambulate self back to bed afterwards. Provider Dr. Garcia notified and present in room after being alerted.
[2024-03-24] MEDS: buPROPion XL 150 MG TAB 300 MG PO (12:02)
[2024-03-24 12:54] LABS: Add Manual Diff / Slide Review NO; Basophils Absolute Auto 0 /uL (0-100); Basophils Percent Auto 0.4 % (0-2); Eosinophils Absolute Auto 0 /uL (0-450); Eosinophils Percent Auto 0.2 % (2-4); Hematocrit 29.6 % (41-53); Lymphocytes Absolute Auto 4000 /uL (1100-4500); Lymphocytes Percent Auto 45.2 % (25-40); Mean Corpuscular HGB Conc 33.7 % (30-36); Mean Corpuscular Hemoglobin 29.8 PG (26-34); Mean Corpuscular Volume 88.5 fL (80-100); Monocytes Absolute Auto 400 /uL (0-900); Monocytes Percent Auto 4.8 % (3-14); Neutrophils Absolute Auto 4300 /uL (1500-7000); Neutrophils Percent Auto 49.4 % (50-75); Platelet Count 155 X10^3/uL (150-400); Red Blood Cell Count 3.34 X10^6/uL (4.5-5.9); Red Cell Distribution Width 15.7 % (11.6-14.8); White Blood Cell Count 8.8 X10^3/uL (4.5-11.0)
--- NOTE | 2024-03-24 13:28 | CM.DANOTE ---
Patient is a 48 yo male who was admitted OBS Status on 03/23/24 for Post Scope Complications. Pt has [employer] for insurance and his PCP is Sherine Mcclellan. EMR was reviewed. Per Surgeon, pt with exploratory colonoscopy and discharged home as outpt and had ongoing rectal bleeding and returned and was admitted and required 3 units of blood and then had further scope today and colon polyps were clipped and removed and pt appears stable right now and possible d/c home tonight vs tomorrow pending labs and ambulation/orthostatics. SW met bedside with pt and explained role and he confirms that he lives with his spouse and young child at home in [place] and is active and independent at baseline and works and drives. Pt states spouse is his informal DPOA and pt has no hx of or SNF. Pt weighs 375 lbs and has some underlying medical conditions and pt's preference is to discharge home when medically stable and confirms his can transport and provide assist if needed. Pt expresses some frustration with his care team and his post surgical complications and requesting to provide feedback in person to Nursing Administration Internship. SW talked to CM Administration Internship and completed QMM regarding pt's wish to give feedback and concerns and left vm for Juan Main in Quality and Risk and also left vm for Observatory Director Anneliese requesting bedside check in with patient. Pt denies any further discharge planning needs at this time and preference remains home. GAUTAM Torres Discharge Planning/Care Management CM Discharge Assessment Start: 03/24/24 13:22 Freq: Status: Active Protocol: Document 03/24/24 13:23 BF (Rec: 03/24/24 13:25 BF [id number]) Discharge Planning Assessment Assigned Electronics Installer GAUTAM Becker DPOA/Assigned Designee Name informally spouse Suyapa Contact Information [phone] Advance Directives? No Advance Directives on File No History Provided By Patient,Medical Record Has Patient been admitted in last 30 No days? Comment Pt did recently have outpt colonoscopy with post surgical complications that required admission Prior Living Arrangements House Household Members spouse,children Type of transporation used prior to Drives own vehicle admit Independent with ADL's Yes Is patient alert and oriented? Yes Caregiver for Another Yes: kids at home Barriers to Discharge No Discharge Plan Home Transportation Arrangement Spouse can provide transport at d/c Referrals Initiated None needed Whiteboard Updated in Patient Room with Yes name and ext. # of Electronics Installer Review Status In Process Please Provide Date Initial DC 03/24/24 Assessment Was Performed Next Review Type Continued Stay Review
--- NOTE | 2024-03-24 16:21 | PC.NURSE ---
Addendum entered by Jian French R.N. 03/24/24 18:24: made aware of new HH , new orders for lab draws at 2400 and 0500 Original Note: patient up to chair, remains a little dizzy,light headed with standing. dr. mccurdy and pt in agreement that he needs to stay another night, needs to be able to get to bathroom at home.
--- NOTE | 2024-03-24 16:32 | P.PN_ITS ---
Subjective Subjective Date Patient Seen: 03/24/24 Time Patient Seen: 16:32 Interval history: Patient underwent successful clipping this morning. Subsequent hemoglobin is stable, but he still feels lightheaded. Wishes to stay another night. Exam Vital Signs (past 8 hours): - 03/24/24 08:34 03/24/24 08:50 03/24/24 09:20 Temperature 97.1 F L Pulse Rate 71 70 73 Respiratory Rate 15 16 Blood Pressure 107/63 108/67 114/54 L Pulse Oximetry 99 100 100 Oxygen Delivery Method Room Air Oxygen Flow Rate 0 0 03/24/24 09:50 03/24/24 10:50 03/24/24 11:50 Temperature Pulse Rate 76 73 81 Respiratory Rate Blood Pressure 99/67 106/70 106/70 Pulse Oximetry 99 99 98 Oxygen Delivery Method Oxygen Flow Rate 0 0 0 Oxygen Delivery Method Room Air Oxygen Flow Rate 0 Narrative Exam Narrative: Awake, alert, no tachycardia Gen: NAD, sitting comfortably in bed, appears well HEENT: Sclera are anicteric, head is normocephalic and atraumatic, trachea is midline. CV: RRR, no JVD Resp: clear to auscultation bilaterally, equal chest wall movement bilaterally Abd: soft, nontender, normoactive bowel sounds Ext: no edema, full range of motion Neuro: Cranial nerves II-XII grossly intact, no focal deficits Skin: No erythema or ecchymosis Objective Labs 03/24/24 12:44 03/23/24 11:52 Labs: Laboratory Results - last 24 hr 03/23/24 03/23/24 03/23/24 11:52 18:18 20:50 WBC RBC Hgb 10.8 L 8.6 L Hct 31.5 L 25.5 L MCV MCH MCHC RDW Plt Count Neut % (Auto) Lymph % (Auto) [place] % (Auto) Eos % (Auto) Baso % (Auto) Neut # (Auto) Lymph # (Auto) [place] # (Auto) Eos # (Auto) Baso # (Auto) Blood Type A Positive Antibody Screen Negative Crossmatch See Detail 03/24/24 03/24/24 03:39 12:44 WBC 8.8 RBC 3.34 L Hgb 9.6 L 10.0 L Hct 28.0 L 29.6 L MCV 88.5 D MCH 29.8 MCHC 33.7 RDW 15.7 H Plt Count 155 Neut % (Auto) 49.4 L Lymph % (Auto) 45.2 H [place] % (Auto) 4.8 Eos % (Auto) 0.2 L Baso % (Auto) 0.4 Neut # (Auto) 4300 Lymph # (Auto) 4000 [place] # (Auto) 400 Eos # (Auto) 0 Baso # (Auto) 0 Blood Type Antibody Screen Crossmatch [facility] Medical History Colon cancer screening (03/22/24) Social History household members: spouse and children Smoking Status: Never smoker alcohol intake: current Assessment & Plan Post-op Postoperative Procedures: Procedures Operation Date: 03/24/24 16:00 Actual Procedure Side Surgeon p Colonoscopy Everett Monterroso MD Postoperative day: 0 Postoperative status: anemia Postoperative status narrative: Repeat hemoglobin in the morning and then likely discharge. Time Spent With Patient Time with patient: 15-24 minutes Quality VTE Deep Vein Thrombosis/Pulmonary Embolism Present on Admission: No
[2024-03-24 18:10] LABS: Hematocrit 27.5 % (41-53); Hemoglobin 9.4 g/dL (13.5-17.5)
[2024-03-24 22:19] LABS: Hematocrit 24.8 % (41-53); Hemoglobin 8.6 g/dL (13.5-17.5)
[2024-03-25 00:30] VITALS: BP 111/61; PULSE 67; RESP 16; TEMP 36.7; O2SAT 99
[2024-03-25 05:10] LABS: Hematocrit 23.2 % (41-53)
[2024-03-25 05:19] VITALS: BP 112/51; PULSE 70; RESP 17; TEMP 36.8; O2SAT 98
[2024-03-25 08:00] VITALS: BP 106/46; PULSE 78; RESP 18; TEMP 36.4; O2SAT 100
[2024-03-25] MEDS: buPROPion XL 150 MG TAB 300 MG PO (08:41)
--- NOTE | 2024-03-25 10:59 | CM.DPNOTE ---
DCP Continued: Reviewed EMR and team rounds for pt?s medical status. Per MD, pt to have one more day of observation due to confirm medical stability before discharging home. No discharge needs identified at this time. Plan: Anticipating dc home with family on 03/26 or when medically cleared. CM Team will continue to follow for coordination of discharge plans. GINA Paz
--- NOTE | 2024-03-25 11:17 | P.PN_ITS ---
Subjective Subjective Date Patient Seen: 03/25/24 Time Patient Seen: 09:35 Interval history: Narrative: The patient was admitted to general surgery for rectal bleeding. He had a colonoscopy yesterday with 3 polyps removed. He was had intermittent maroon rectal bleeding since. He was admitted at about 1400 today. The plan is prep and colonoscopy. The patient again has been having intermittent rectal bleeding today. He had a syncopal episode and was assisted to the floor when a stat call was made at about 17 30. He was diaphoretic and somewhat confused. He was placed in Trendelenburg with his feet elevated and bolused with 2 L of saline through 2 peripheral IVs. He improved rapidly. He was able to stand up and use bedside commode with more rectal bleeding. A stat H&H was ordered. Completion of 2 L of saline bolus followed. Details were transmitted to the general surgeon. They requested consultation, blood as ordered. He takes apixaban for a pulmonary embolism several years ago, unprovoked. He has been on this indefinitely. His last dose was 3 days ago. Subjective: He reports no further bleeding. Exam Vital Signs (past 8 hours): - 03/25/24 05:19 03/25/24 08:00 03/25/24 08:00 Temperature 98.3 F 97.6 F 97.6 F Pulse Rate 70 78 78 Respiratory Rate 17 18 18 Blood Pressure 112/51 L 106/46 L 106/46 L Pulse Oximetry 98 100 100 Oxygen Flow Rate 0 0 0 Oxygen Delivery Method Room Air Oxygen Flow Rate 0 Narrative Exam Narrative: Awake, alert, no tachycardia Gen: NAD, sitting comfortably in bed, appears well HEENT: Sclera are anicteric, head is normocephalic and atraumatic, trachea is midline. CV: RRR, no JVD Resp: clear to auscultation bilaterally, equal chest wall movement bilaterally Abd: soft, nontender, normoactive bowel sounds Ext: no edema, full range of motion Neuro: Cranial nerves II-XII grossly intact, no focal deficits Skin: No erythema or ecchymosis Objective Labs 03/25/24 04:34 03/23/24 11:52 Labs: Laboratory Results - last 24 hr 03/24/24 03/24/24 03/24/24 12:44 18:00 22:05 WBC 8.8 RBC 3.34 L Hgb 10.0 L 9.4 L 8.6 L Hct 29.6 L 27.5 L 24.8 L MCV 88.5 D MCH 29.8 MCHC 33.7 RDW 15.7 H Plt Count 155 Neut % (Auto) 49.4 L Lymph % (Auto) 45.2 H [place] % (Auto) 4.8 Eos % (Auto) 0.2 L Baso % (Auto) 0.4 Neut # (Auto) 4300 Lymph # (Auto) 4000 [place] # (Auto) 400 Eos # (Auto) 0 Baso # (Auto) 0 03/25/24 04:34 WBC RBC Hgb 8.0 L Hct 23.2 L MCV MCH MCHC RDW Plt Count Neut % (Auto) Lymph % (Auto) [place] % (Auto) Eos % (Auto) Baso % (Auto) Neut # (Auto) Lymph # (Auto) [place] # (Auto) Eos # (Auto) Baso # (Auto) [facility] Medical History Colon cancer screening (03/22/24) Social History household members: spouse and children Smoking Status: Never smoker alcohol intake: current Assessment & Plan Assessment & Plan narrative: 1. Syncope likely related to acute blood loss, new and active. 2. Blood loss anemia, present on admission and active. 3. Recent polypectomy (x3) with rectal bleeding, present on admission and active. 4. Chronic apixaban for DVT, held for the last 3 days. 5. Morbid obesity with BMI of 48, present on admission stable. The patient has received 2 units of packed red blood cells. He is hemodynamically stable without further bleeding at this point. He is at high- risk given chronic anticoagulation use, currently held. Plan: -monitor clinical status, rectal output, and hemoglobin today. -discussed timing of discharge with General surgery. HELEN: 03/26 Quality VTE Deep Vein Thrombosis/Pulmonary Embolism Present on Admission: No [facility] PROFEE Process Control Engineer Document charge(s): No Charge Codes Subsequent inpatient/observation care: [id number]
[2024-03-25 12:00] VITALS: PULSE 70; TEMP 36.4
[2024-03-25 13:51] LABS: Hematocrit 18.3 % (41-53); Hemoglobin 6.2 g/dL (13.5-17.5)
[2024-03-25 13:55] VITALS: BP 116/59; PULSE 80; RESP 20; TEMP 36.4; O2SAT 100
--- NOTE | 2024-03-25 14:03 | PC.NURSE ---
Day shift: Dr Magana made aware of Pt's low H/H critical lab value. Wants a repeat H/H NOW.
[2024-03-25 15:07] LABS: Hematocrit 23.7 % (41-53); Hemoglobin 8.2 g/dL (13.5-17.5)
[2024-03-25] MEDS: CYANOCOBALAMIN 1,000 MCG/ML VIAL 1000 MCG SUBCUT (16:37)
[2024-03-25] MEDS: SODIUM FERRIC GLUCONAT/SUCROSE 125 MG in SODIUM CHLORIDE 0.9% 100 ML 110 MG IV (16:39)
--- NOTE | 2024-03-25 16:43 | PM.PNPO.1 ---
Subjective Subjective Date Patient Seen: 03/25/24 Time Patient Seen: 16:43 Interval history: Patient's hemoglobin is stable since clipping. He still feels tired. He has not had a bowel movement since clipping. Exam Vital Signs (past 8 hours): - 03/25/24 12:00 03/25/24 13:55 Temperature 97.6 F 97.5 F L Pulse Rate 70 80 Respiratory Rate 20 Blood Pressure 116/59 L Pulse Oximetry 100 Oxygen Flow Rate 0 Oxygen Delivery Method Room Air Oxygen Flow Rate 0 Narrative Exam Narrative: Gen: NAD, sitting comfortably in bed, appears well HEENT: Sclera are anicteric, head is normocephalic and atraumatic, trachea is midline. CV: RRR, no JVD Resp: clear to auscultation bilaterally, equal chest wall movement bilaterally Abd: soft, nontender, normoactive bowel sounds Ext: no edema, full range of motion Neuro: Cranial nerves II-XII grossly intact, no focal deficits Skin: No erythema or ecchymosis Objective Labs 03/25/24 14:15 03/23/24 11:52 Labs: Laboratory Results - last 24 hr 03/24/24 03/24/24 03/25/24 18:00 22:05 04:34 Hgb 9.4 L 8.6 L 8.0 L Hct 27.5 L 24.8 L 23.2 L 03/25/24 03/25/24 13:35 14:15 Hgb 6.2 L* 8.2 L Hct 18.3 L* 23.7 L PFSH Medical History Colon cancer screening (03/22/24) Social History household members: spouse and children Smoking Status: Never smoker alcohol intake: current Assessment & Plan Post-op Postoperative Procedures: Procedures Operation Date: 03/24/24 16:00 Actual Procedure Side Surgeon p Colonoscopy Everett Monterroso MD Postoperative day: 1 Postoperative status: doing well and anemia Postoperative status narrative: Patient would like to wait a bowel movement prior to discharge. Postoperative plan: routine post-op care Time Spent With Patient Time with patient: less than 15 minutes Quality VTE Deep Vein Thrombosis/Pulmonary Embolism Present on Admission: No
[2024-03-25 20:30] VITALS: BP 109/55; PULSE 84; RESP 18; TEMP 36.3; O2SAT 100
[2024-03-26 04:00] VITALS: BP 112/55; PULSE 69; RESP 18; TEMP 36.4; O2SAT 99
[2024-03-26 05:15] LABS: Add Manual Diff / Slide Review NO; Basophils Absolute Auto 0 /uL (0-100); Basophils Percent Auto 0.5 % (0-2); Eosinophils Absolute Auto 0 /uL (0-450); Eosinophils Percent Auto 0.3 % (2-4); Lymphocytes Absolute Auto 2600 /uL (1100-4500); Lymphocytes Percent Auto 45.4 % (25-40); Mean Corpuscular HGB Conc 34.5 % (30-36); Mean Corpuscular Hemoglobin 30.3 PG (26-34); Monocytes Absolute Auto 400 /uL (0-900); Monocytes Percent Auto 7.1 % (3-14); Neutrophils Absolute Auto 2700 /uL (1500-7000); Neutrophils Percent Auto 46.7 % (50-75); Platelet Count 127 X10^3/uL (150-400); Red Blood Cell Count 2.29 X10^6/uL (4.5-5.9); Red Cell Distribution Width 15.8 % (11.6-14.8); White Blood Cell Count 5.7 X10^3/uL (4.5-11.0)
[2024-03-26 05:27] LABS: Hematocrit 20.2 % (41-53)
[2024-03-26 08:00] VITALS: BP 121/73; PULSE 73; RESP 21; TEMP 37; O2SAT 100
[2024-03-26] MEDS: buPROPion XL 150 MG TAB 300 MG PO (08:13)
[2024-03-26] MEDS: MULTIVITAMIN 1 TABLET 1 TAB PO (08:13)
[2024-03-26] MEDS: polyethylene glycoL 3350 17 GM POWD.PACK PO (08:13)
[2024-03-26 08:29] LABS: Hematocrit 24.4 % (41-53); Hemoglobin 8.3 g/dL (13.5-17.5)
--- NOTE | 2024-03-26 08:59 | PM.PNPO.1 ---
Subjective Subjective Date Patient Seen: 03/26/24 Time Patient Seen: 08:59 Interval history: Patient seems to have it to erroneous blood draws 1 yesterday and 1 today which showed him to be more anemic than he truly is. Repeat have shown stable hemoglobins since clipping. He should be appropriate for discharge today, he said his lightheadedness has improved. Exam Vital Signs (past 8 hours): - 03/26/24 04:00 03/26/24 08:00 Temperature 97.6 F 98.6 F Pulse Rate 69 73 Respiratory Rate 18 21 Blood Pressure 112/55 L 121/73 Pulse Oximetry 99 100 Oxygen Flow Rate 0 Oxygen Delivery Method Room Air Oxygen Flow Rate 0 Narrative Exam Narrative: Gen: NAD, sitting comfortably in bed, appears well HEENT: Sclera are anicteric, head is normocephalic and atraumatic, trachea is midline. CV: RRR, no JVD Resp: clear to auscultation bilaterally, equal chest wall movement bilaterally Abd: soft, nontender, normoactive bowel sounds Ext: no edema, full range of motion Neuro: Cranial nerves II-XII grossly intact, no focal deficits Skin: No erythema or ecchymosis Objective Labs 03/26/24 08:23 03/23/24 11:52 Labs: Laboratory Results - last 24 hr 03/25/24 03/25/24 03/26/24 13:35 14:15 05:04 WBC 5.7 RBC 2.29 L Hgb 6.2 L* 8.2 L 7.0 L Hct 18.3 L* 23.7 L 20.2 L* MCV 88.0 MCH 30.3 MCHC 34.5 RDW 15.8 H Plt Count 127 L Neut % (Auto) 46.7 L Lymph % (Auto) 45.4 H [place] % (Auto) 7.1 Eos % (Auto) 0.3 L Baso % (Auto) 0.5 Neut # (Auto) 2700 Lymph # (Auto) 2600 [place] # (Auto) 400 Eos # (Auto) 0 Baso # (Auto) 0 03/26/24 08:23 WBC RBC Hgb 8.3 L Hct 24.4 L MCV MCH MCHC RDW Plt Count Neut % (Auto) Lymph % (Auto) [place] % (Auto) Eos % (Auto) Baso % (Auto) Neut # (Auto) Lymph # (Auto) [place] # (Auto) Eos # (Auto) Baso # (Auto) PFSH Medical History Colon cancer screening (03/22/24) Social History household members: spouse and children Smoking Status: Never smoker alcohol intake: current Assessment & Plan Post-op Postoperative Procedures: Procedures Operation Date: 03/24/24 16:00 Actual Procedure Side Surgeon p Colonoscopy Everett Monterroso MD Postoperative day: 2 Postoperative status: anemia Postoperative status narrative: Iron supplements Postoperative plan: discharge Time Spent With Patient Time with patient: less than 15 minutes Quality VTE Deep Vein Thrombosis/Pulmonary Embolism Present on Admission: No
--- NOTE | 2024-03-26 09:31 | P.DS_ITS ---
History of Present Illness History of Present Illness Date Patient Seen: 03/26/24 Time Patient Seen: 09:00 Chief complaint: bleeding fron colon after colonoscopy T-1, dizzy Narrative: The patient was admitted to general surgery for rectal bleeding. He had a colonoscopy yesterday with 3 polyps removed. He was had intermittent maroon rectal bleeding since. He was admitted at about 1400 today. The plan is prep and colonoscopy. The patient again has been having intermittent rectal bleeding today. He had a syncopal episode and was assisted to the floor when a stat call was made at about 17 30. He was diaphoretic and somewhat confused. He was placed in Trendelenburg with his feet elevated and bolused with 2 L of saline through 2 peripheral IVs. He improved rapidly. He was able to stand up and use bedside commode with more rectal bleeding. A stat H&H was ordered. Completion of 2 L of saline bolus followed. Details were transmitted to the general surgeon. They requested consultation, blood as ordered. Discharge Providers Provider Date of admission: 03/23/24 13:25 Discharge Date: 03/26/24 Primary care physician: Sherine Mcclellan DO Consults: 03/23/24 18:41 Consult to Physician Routine Comment: Consulting Provider: Иван Garcia Reason for consultation: medical mgmt Has provider been notified: Yes Discharge provider: Miguelito Magana MD Summary Hospital Course Discharge Diagnosis: 1. Syncope likely related to acute blood loss. 2. Blood loss anemia due to recent polypectomy. 3. Recent polypectomy (x3) with rectal bleeding, present on admission and active. 4. Chronic apixaban for history of PE, on hold. 5. Severe obesity with BMI of 48. Hospital Course: The patient was admitted and transfused a total of 3 units of packed red blood cells and underwent clipping x2 of a bleeding stock from a polypectomy. He had no further bleeding during his hospitalization. He was administered IV iron and B12. He was feeling well and tolerating a diet discharged home without incident, off Eliquis until cleared in 1 week to resume. Status at Discharge Cognitive/behavioral status at discharge: oriented Functional status at discharge: independent ambulation Overall status at discharge: patient is back to baseline Time Spent with Patient Time spent: Less than 30 minutes Exam Vital Signs (past 8 hours): - 03/26/24 04:00 03/26/24 08:00 Temperature 97.6 F 98.6 F Pulse Rate 69 73 Respiratory Rate 18 21 Blood Pressure 112/55 L 121/73 Pulse Oximetry 99 100 Oxygen Flow Rate 0 Oxygen Delivery Method Room Air Oxygen Flow Rate 0 Narrative Exam Narrative: Gen: NAD, sitting comfortably in bed, appears well HEENT: Sclera are anicteric, head is normocephalic and atraumatic, trachea is midline. CV: RRR, no JVD Resp: clear to auscultation bilaterally, equal chest wall movement bilaterally Abd: soft, nontender, normoactive bowel sounds Ext: no edema, full range of motion Neuro: Cranial nerves II-XII grossly intact, no focal deficits Skin: No erythema or ecchymosis Objective Labs 03/26/24 08:23 03/23/24 11:52 Labs: Laboratory Results - last 24 hr 03/25/24 03/25/24 03/26/24 13:35 14:15 05:04 WBC 5.7 RBC 2.29 L Hgb 6.2 L* 8.2 L 7.0 L Hct 18.3 L* 23.7 L 20.2 L* MCV 88.0 MCH 30.3 MCHC 34.5 RDW 15.8 H Plt Count 127 L Neut % (Auto) 46.7 L Lymph % (Auto) 45.4 H [place] % (Auto) 7.1 Eos % (Auto) 0.3 L Baso % (Auto) 0.5 Neut # (Auto) 2700 Lymph # (Auto) 2600 [place] # (Auto) 400 Eos # (Auto) 0 Baso # (Auto) 0 03/26/24 08:23 WBC RBC Hgb 8.3 L Hct 24.4 L MCV MCH MCHC RDW Plt Count Neut % (Auto) Lymph % (Auto) [place] % (Auto) Eos % (Auto) Baso % (Auto) Neut # (Auto) Lymph # (Auto) [place] # (Auto) Eos # (Auto) Baso # (Auto) PENDING SALE TO [facility] Medical History Colon cancer screening (03/22/24) Social History household members: spouse and children Smoking Status: Never smoker alcohol intake: current Discharge Plan Discharge Plan Patient Disposition: Home Provider Discharge Comment: Remain off Eliquis until cleared to restart by primary care provider; follow-up [address] Mcclellan. Discharge orders & Medications Prescriptions: Continued naltrexone 50 mg tablet 50 mg PO DAILY bupropion HCl 300 mg tablet extended release 24 hr 300 mg PO QAM (DME) ResMed AirCurve 10 VAuto See Rx Instructions .Route .MEDSUPPLY Rx Instructions: BIPAP Max IPAP: 14 MIN EPAP: 6 PS: 4 DME: [facility] ipratropium bromide 42 mcg (0.06 %) spray,non-aerosol 2 spray intranasal TID Qty: 15 2RF Rx Instructions: administer into each nostril Discontinued Eliquis 5 mg tablet 5 mg PO BID Follow up/Referrals: Sherine Mcclellan DO [Primary Care Provider] - Diet/Activity/Treatments Diet: Regular Diet comment: Take OTC Iron daily for 60 days. They may make your stool black. Skin/Wound/Dressing Care Report to your healthcare provider any signs of infection, such as:: chills, fever, night sweats, increased pain, unusual drainage and unusual redness Visit Report/Discharge Packet Instructions: High-Fiber Diet, DI for Colon Polypectomy Stand Alone Forms: Patient Portal/API, Stroke Signs & Symptoms Discharge Data Primary Care Provider: Sherine Mcclellan Attending Provider: Everett Monterroso Admit Date/Time: 03/23/24 13:25 Quality VTE Deep Vein Thrombosis/Pulmonary Embolism Present on Admission: No MIPS - Admit I confirm the patient?s Advance Care Plan is present, Code status is documented, Surrogate decision maker is in patient?s record [If Yes, STOP here]: Yes MIPS - Meds 'Current medications' to include all prescriptions, xsmo-ofo-onufjef products, herbals, cannabis/cannabidiol products, and vitamin/mineral/dietary (nutritional) supplements. I have utilized all available resources to obtain, update, or review the patient?s current medications. [If Yes, STOP here]: Yes MIPS - DC The patient has a history of heart transplant or Left Ventricular Assist Device (LVAD). If yes, STOP here.: No The patient has current or prior documentation of left ventricular ejection fraction (LVEF) less than or equal to 40%, or moderate or severely depressed left ventricular systolic function.: No A. The patient was prescribed or already taking an Angiotensin-Converting Enzyme (LORENZO) Inhibitor, or Angiotensin Receptor Debbie (ARB).: No B. The patient was prescribed or already taking a beta-debbie. [If Yes to Both A & B, STOP here]: No Patient not prescribed/taking LORENZO or ARB, no reason given.: No Patient not prescribed/taking beta-debbie, no reason given.: No PROFEE Charge Codes Discharge inpatient/observation: [id number]
--- NOTE | 2024-03-26 10:52 | CM.DPC ---
DCP Discharge Home Per Surgeon and MD, pt's H&H has remained stable and medically stable to discharge home today with outpt f/u and no identified barriers to discharge. Per RN, pt agreeable with discharge home and called spouse and now waiting for transport home, no concerns noted. Director Nursing Anneliese had previously met bedside with pt this week and took note of his concerns and questions. Plan: Patient to discharge home today via spouse POV and outpt f/u after discharge. No further SW needs at this time. GAUTAM Torres
--- NOTE | 2024-03-26 11:51 | PC.NURSE ---
Day shift: Paperwork signed and all questions answered. No BM overnight and no BM this AM. H/H stable per lab results. Pt remains asymptomatic as well. Spouse in room for discharge teachings. Pt taken to car via WC at approx 1150. No new MD scripts. Pt has all personal belongings.
--- NOTE | 2024-04-02 09:20 | PC.NURSE ---
Late entry 03/24/24 @ 0944: Following medication finished infusing at 0944: IV Sodium Ferric Gluconat/Sucrose [Ferrlecit 62.5 mg/5 ml Vial] 125mg / Sodium Chloride 0.9% [Normal Saline 0.9%] 100ml
== END 2024-03-26 11:53 | disposition home or self-care (01) ==
LOC: ED 13:10 → AC 13:48
PROVIDERS: Hospitalist; Internal Medicine; Admitting Provider Surgery; Emergency Provider Emergency Medicine; PCP Family Medicine; Referring Provider Emergency Medicine; Visit Provider Surgery
PROC: 0DJD8ZZ Inspection of Lower Intestinal Tract, Via Natural or Artificial Opening Endoscopic (ICD-10-PCS; CPT 45378; principal; 2024-03-24 07:15)
DX: K91.840 Postprocedural hemorrhage of a digestive system organ or structure following a digestive system procedure (principal); R55 Syncope and collapse; D62 Acute posthemorrhagic anemia; Z98.890 Other specified postprocedural states; E66.01 Morbid (severe) obesity due to excess calories; Z68.42 Body mass index [BMI] 45.0-49.9, adult; Z79.01 Long term (current) use of anticoagulants; Z86.718 Personal history of other venous thrombosis and embolism; Z98.84 Bariatric surgery status; Z12.11 Encounter for screening for malignant neoplasm of colon; K64.8 Other hemorrhoids; D12.2 Benign neoplasm of ascending colon
CPT/HCPCS: 45382; 36415; 36430; 45385; 80053; 82272; 85014; 85018; 85025; 85610; 85730; 86850; 86900; 86901; 93005; 93010; 96361; 96365; 96366; 96372; 99221; 99231; 99284; 99285; G0378; P9016; J2704; J2916; J3420